=== PATIENT | male | born 1955 | race Caucasian/White ===

== ENCOUNTER 2016-12-22 14:31 | Inpatient (IN) | payer OTHER ==
[~2016-12-22] VITALS: Ht 193 cm; Wt 116.2 kg
[~2016-12-22 14:31] MED LIST: ASPI-799 PO; METO-429 PO
[2016-12-22] MEDS ORDERED: VANCOMYCIN 1 GM (PMX) 250 ML IVPB SCH ×2 (15:00→17:30)
[2016-12-22] MEDS ORDERED: CEFTRIAXONE 1 GM/50 ML (PMX) 50 ML IVPB STA (15:00)
[2016-12-22 16:06] LABS: BASOPHILS % 0.4 % (0.0-2.0); EOSINOPHILS # 0.1 10^3/ul (0.0-0.5); EOSINOPHILS % 0.9 % (0.0-7.0); HEMATOCRIT 39.4 % (42.0-52.0); HEMOGLOBIN 13.7 g/dl (14.0-18.0); LYMPHOCYTES # 1.6 10^3/ul (0.8-2.9); LYMPHOCYTES % 20.8 % (15.0-51.0); MEAN CORPUSCULAR HEMOGLOBIN 30.5 pg (29.0-33.0); MEAN CORPUSCULAR HGB CONC 34.8 g/dl (32.0-37.0); MEAN CORPUSCULAR VOLUME 87.8 fl (82.0-101.0); MONOCYTE # 0.7 10^3/ul (0.3-0.9); MONOCYTES % 8.6 % (0.0-11.0); NEUTROPHIL # 5.4 10^3/ul (1.6-7.5); NEUTROPHILS % 68.9 % (39.0-77.0); PLATELET COUNT 161 10^3/UL (140-415); RED BLOOD COUNT 4.49 10^6/ul (4.70-6.10); RED CELL DISTRIBUTION WIDTH 14.6 % (11.5-14.5); WHITE BLOOD COUNT 7.9 10^3/ul (4.8-10.8)
[2016-12-22 16:23] LABS: INR 1.02; PROTIME 13.4 Sec (12.2-14.2)
[2016-12-22 16:25] LABS: ALBUMIN/GLOBULIN RATIO 1.17; BILIRUBIN,INDIRECT 0.5 mg/dl (0-1.1); BILIRUBIN,TOTAL 0.5 mg/dl (0.2-1.3); CALCIUM 9.4 mg/dl (8.4-10.2); CREATININE 0.77 mg/dl (0.61-1.24); POTASSIUM 4.1 mmol/L (3.5-5.1); TOTAL PROTEIN 7.4 g/dl (6.1-8.1)
--- NOTE | 2016-12-22 16:34 | RADRPT ---
PROCEDURE: US Lower extremity venous, bilateral CLINICAL INDICATION: bilateral lower extremity swelling, DVT TECHNIQUE: Multiple sonographic images of the bilateral lower extremity deep venous system was ob tained utilizing grayscale, color-flow, compressive sonography and doppler imaging with augmentation . The images were reviewed on a PACS workstation. COMPARISON: None. FINDINGS: There is normal compressibility and flow within the bilateral common femoral, superficial femoral , posterior tibial, peroneal and popliteal veins. RPTAT: AA IMPRESSION: No sonographic evidence for deep venous thrombosis in bilateral lower extremities. Physician Christina Date Time Electronically viewed and signed by Physician Christina on 12/22/2016 16:34 /
--- NOTE | 2016-12-22 17:23 | ERD ---
ER Documentation Chief Complaint Chief Complaint direct admission for infection to rMatesu díaz HPI 61-year-old referred here for IV antibiotic therapy. He has a recent history of right second toe ulceration and suspected osteomyelitis. He states he has been using oral Cipro improvement. He describes right left toe discoloration and ulcer formation at the tip. He has chronic bilateral lower extremity peripheral edema and peripheral vascular disease. He denies fevers or chills, no chest pain or shortness of breath, no headache or blurry vision. Patient denies vomiting or diarrhea. He has had recent imaging studies which could not be reviewed here in the emergency department. ROS All systems reviewed and are negative except as per history of present illness. Medications Home Meds Reported Medications Aspirin/Calcium Carbonate/Mag (Aspirin Buffered) 325 Mg Tablet, 325 MG PO DAILY , TAB 04/15/14 Metoprolol Tartrate* (Lopressor*) 50 Mg Tab, 50 MG PO BID, TAB 04/15/14 Allergies Allergies: Coded Allergies: pseudoephedrine (Verified Allergy, Intermediate, HALLUCINATION, 04/15/14) sulfamethoxazole (Verified Adverse Reaction, Severe, RASHES, 04/15/14) trimethoprim (Verified Adverse Reaction, Severe, RASHES, 04/15/14) PMhx/Soc Hypertension, CAD, peripheral vascular disease, stasis dermatitis History of Surgery: Yes (LEFT FOOT SURGERY 2013) Anesthesia Reaction: No Hx Neurological Disorder: No Hx Respiratory Disorders: No Hx Cardiac Disorders: Yes (AFIB) Hx Psychiatric Problems: No Hx Miscellaneous Medical Probl: Yes (PAD, FOOT/TOE ULCER, CELLUTLITIS) Hx Alcohol Use: Yes (2 CUPS WINE DAILY) Hx Substance Use: No Hx Tobacco Use: No Smoking Status: Never smoker FmHx Family History: No diabetes Physical Exam Vitals Vital Signs Date Time Temp Pulse Resp B/P Pulse Ox O2 Delivery O2 Flow Rate FiO2 12/22/16 14:33 98.9 107 20 130/81 96 Physical Exam GENERAL: Well-developed, well-nourished, well-hydrated, in no apparent distress , looks nontoxic in appearance, afebrile HEENT: Moist mucous membranes, pink conjunctiva, no cervical spine tenderness or step-off deformities, no goiter, no jaundice or icterus, extraocular movements intact without pain. No submandibular induration, and no pharyngeal erythema NEURO: Alert and oriented 3, cranial nerves II through XII intact bilaterally, pupils equal round reactive to light, no focal deficits or facial asymmetry, sensation intact distally Strength 5/5 in upper and lower extremities bilaterally CARDIAC: Regular rate and rhythm, no murmurs rubs or gallops LUNGS: Clear bilaterally no wheezing crackles or stridor ABDOMEN: Soft nontender, no guarding, no rigidity, no rebound, no psoas sign no obturator sign. Normoactive bowel sounds SKIN: Warm and dry to touch, diffuse bilateral lower extremity erythema and chronic skin changes, superficial ulceration of the tip of the right second toe with circumferential erythema to that toe. EXTREMITIES: No clubbing cyanosis, 2+ pitting edema to the lower extremities bilaterally, calves are bilaterally symmetrical, no Homans sign, no popliteal cord sign. Distal pulses equal and bilateral PSYCH: Normal affect without agitation or irritability Result Diagram: 12/22/16 1550 12/22/16 1550 Results 24 hrs Laboratory Tests Test 12/22/16 15:50 White Blood Count 7.910^3/ul Red Blood Count 4.4910^6/ul Hemoglobin 13.7g/dl Hematocrit 39.4% Mean Corpuscular Volume 87.8fl Mean Corpuscular Hemoglobin 30.5pg Mean Corpuscular Hemoglobin Concent 34.8g/dl Red Cell Distribution Width 14.6% Platelet Count 57390^3/UL Mean Platelet Volume 11.0fl Neutrophils % 68.9% Lymphocytes % 20.8% Monocytes % 8.6% Eosinophils % 0.9% Basophils % 0.4% Nucleated Red Blood Cells % 0.0/100WBC Neutrophils # 5.410^3/ul Lymphocytes # 1.610^3/ul Monocytes # 0.710^3/ul Eosinophils # 0.110^3/ul Basophils # 0.010^3/ul Nucleated Red Blood Cells # 0.010^3/ul Prothrombin Time 13.4Sec Prothrombin Time Ratio 1.0 INR International Normalized Ratio 1.02 Sodium Level 135mmol/L Potassium Level 4.1mmol/L Chloride Level 100mmol/L Carbon Dioxide Level 28mmol/L Anion Gap 11 Blood Urea Nitrogen 13mg/dl Creatinine 0.77mg/dl Glucose Level 81mg/dl Calcium Level 9.4mg/dl Total Bilirubin 0.5mg/dl Direct Bilirubin 0.00mg/dl Indirect Bilirubin 0.5mg/dl Aspartate Amino Transf (AST/SGOT) 23IU/L Alanine Aminotransferase (ALT/SGPT) 40IU/L Alkaline Phosphatase 131IU/L Total Protein 7.4g/dl Albumin 4.0g/dl Globulin 3.40g/dl Albumin/Globulin Ratio 1.17 Lipase 112U/L Current Medications Medications (Trade) Dose Ordered Sig/Amanda Route PRN Reason Start Time Stop Time Status Last Admin Dose Admin Ceftriaxone Sodium 50 ml @ 100 mls/hr ONCE STAT IVPB 12/22/16 15:00 12/22/16 15:29 DC 12/22/16 15:50 Vancomycin HCl (Vancocin) 250 ml @ 125 mls/hr ONCE IVPB 12/22/16 15:00 12/22/16 16:59 DC 12/22/16 17:07 Procedures/MDM IV line was established patient was placed on commissions manager rhythm strip revealed a sinus rhythm at about 80 bpm with upright P and T waves. Patient was afebrile. Blood cultures were ordered results are pending I will follow-up. Arterial Doppler ultrasound of lower extremities was performed there is evidence of left lower extremity arterial stenosis diffusely but no focal thrombus noted. Please refer to radiologist dictation for full report. Bilateral lower extremity ultrasound was performed, no DVTs noted. I administered ceftriaxone 1 g IV 1 and vancomycin 1 g IV 1. CBC and electrolytes were normal, liver function tests are normal, coagulation profile. X-ray of the right foot has also been ordered results are pending I will follow- up. Patient will be admitted to telemetry setting for continued medical management and IV antibiotics. Departure Diagnosis: Primary Impression: Cellulitis of second toe Laterality: right Qualified Code: L03.031 - Cellulitis of second toe of right foot Additional Impressions: Osteomyelitis of toe Stasis dermatitis of both legs Peripheral vascular disease Condition: VAISHALI Pate MD Dec 22, 2016 17:22
[2016-12-22] MEDS ORDERED: NACL 0.9% 3 ML SYG IV SCH (17:30)
[2016-12-22] MEDS ORDERED: ACETAMINOPHEN 325 MG TAB PO PRN (17:30)
[2016-12-22] MEDS ORDERED: ONDANSETRON 4 MG INJ IV PRN (17:30)
[2016-12-22] MEDS ORDERED: HYDROCODONE/APAP (5/325) TAB PO PRN (17:30)
[2016-12-22] MEDS ORDERED: BISACODYL (EC) 5 MG TAB PO PRN (17:30)
[2016-12-22] MEDS ORDERED: morphine 2 MG INJ IV PRN (17:30)
[2016-12-22] MEDS ORDERED: VANCOMYCIN IV PER PHARMACY XX SCH (17:30)
[2016-12-22] MEDS ORDERED: LORAZEPAM 0.5 MG TAB PO PRN (17:30)
--- NOTE | 2016-12-22 17:41 | HP ---
Date/Time of Note Date/Time of Note DATE: 12/22/16 TIME: 17:33 Assessment/Plan VTE Prophylaxis VTE Prophylaxis Intervention: LMWH Assessment/Plan Chief Complaint/Hosp Course Patient is a 61-year-old male with a past medical history of A. fib who presents for possible osteomyelitis of the second toe. Assessment and plan Sepsis, secondary to possible osteomyelitis on right toe Right toe ulcer Mild anemia Atrial fibrillation, chronic Bilateral venous stasis, chronic History of MRSA cellulitis Scoliosis Colon polyps, history of -Patient sent by director of business services, Dr. Damaris Watson, for admission , for possible osteomyelitis -X-rays seen in the office showed possible gaseous formation and possible osteomyelitis, will repeat x-ray, will get MRI and start patient on broad- spectrum antibiotics for now. -Blood cultures for sepsis and lactic acid pending -EKG, patient has not seen doctors and states that a 325 mg aspirin is all he needs, explained to patient that this is not typical treatment for atrial fibrillation, patient states he understands his medical condition and states that he only wants to take a full aspirin for his atrial fibrillation and accepts all risks associated with full dose aspirin including and debility. -Echocardiogram, pending -Lower extremity ultrasound noted, no DVT -Appears patient has chronic venous stasis in his bilateral lower extremity, will consult cardiology if echocardiogram is abnormal significantly. -We will consult ID -Attempted to call patient's director of business services, patient stated he has [facility] at this hospital, message left with director of business services office, will call again in the a.m. Problems: HPI/ROS Admit Date/Time Admit Date/Time Hx of Present Illness Patient is a 61-year-old male with past medical history significant for atrial fibrillation and chronic bilateral venous stasis and cellulitis along with right toe ulcer who presents to [facility] after being sent by his director of business services for possible osteomyelitis. Patient states that he has been on oral antibiotics and stated that he has felt that the ulcer is getting better, however recent x-rays done at the director of business services's office showed possible osteomyelitis and he was sent to the hospital. Patient has no other acute complaints and states that all he takes his Lasix and a full dose aspirin for his A. fib and he does not follow-up with a regular primary care provider as he did not have insurance before. Patient has no complaints at this time. Patient denies chest pain, nausea, vomiting, bowel or bladder dysfunction. PMH: Atrial fibrillation, scoliosis, lower extremity swelling PSH: Left varicose vein surgery Social: Daily wine Meds: 325 mg aspirin, Lasix 20 mg PMH/Family/Social Social History Smoking Status: Never smoker Exam/Review of Systems Vital Signs Vitals Vital Signs Date Time Temp Pulse Resp B/P Pulse Ox O2 Delivery O2 Flow Rate FiO2 12/22/16 14:33 98.9 107 20 130/81 96 Exam Exam Physical exam General: Patient is laying in bed and answers questions appropriately Mentation: Patient is alert and oriented 4, Head: Normocephalic atraumatic Eyes: EOMI, pupils reactive to light Neck: Supple, nontender, midline Respiratory: Clear to auscultation bilaterally Cardiovascular: regular rate, no obvious murmurs Gastrointestinal: non-tender to palpation, bowel sounds heard. Neurological: Moves all extremities spontaneously Skin: R 2nd toe ulcer, non-purulent Labs Result Diagram: 12/22/16 1550 12/22/16 1550 VAISHALI CHAU Dec 22, 2016 17:41
--- NOTE | 2016-12-22 17:45 | RADRPT ---
PROCEDURE: US bilateral lower extremity arteries. CLINICAL INDICATION: Bilateral leg pain. Claudication that interferes significantly with the sina ent's lifestyle. TECHNIQUE: Multiple longitudinal and transverse images of the bilateral lower extremity arteries w ere obtained with lugo scale, pulsed Doppler, and color Doppler imaging. COMPARISON: No prior studies are available for comparison. FINDINGS: Right ANATOMY AND PHYSIOLOGY INSTRUCTOR:73 cm/sec PSFA:83 cm/sec MSFA:71 cm/sec DSFA:64 cm/sec POP:101 cm/sec LAWYERS:72 cm/sec DPA:73 cm/sec Left ANATOMY AND PHYSIOLOGY INSTRUCTOR:123 cm/sec PSFA:118 cm/sec MSFA:94 cm/sec DSFA:112 cm/sec POP:80 cm/sec LAWYERS:34 cm/sec DPA:61 cm/sec On the right side, there is normal triphasic flow throughout. There is no stenosis or occlusion. On the left side, there is normal triphasic flow in the femoral and popliteal systems. Monophasic fl ow is present in the calf arteries. IMPRESSION: 1. Abnormal flow in the left calf arteries which may indicate significant stenosis. 2. Otherwise unremarkable study. RPTAT: QQ .Shar Mendosa MD, MD Date Time Electronically viewed and signed by .Shar Mendosa MD, on 12/22/2016 17:45 .R/
--- NOTE | 2016-12-22 17:53 | RADRPT ---
PROCEDURE: XR Right Foot. CLINICAL INDICATION: Trauma. Right foot pain. TECHNIQUE: 3 views. Frontal, lateral, and oblique. COMPARISON: None. FINDINGS: There is an old healed fracture of the distal shaft of the second metatarsal. There is no acute frac ture. There is no dislocation. There is diffuse soft tissue swelling overlying the metatarsals. Articular surfaces are intact. There is no lytic or blastic lesion. There is no radiopaque foreign body. IMPRESSION: 1. Old healed fracture of the distal shaft of the second metatarsal. 2. No acute bone or joint abnormality. 3. Diffuse soft tissue swelling overlying the metatarsals. 4. Otherwise unremarkable study. RPTAT: QQ .Shar Mendosa MD, MD Date Time Electronically viewed and signed by .Shar Mendosa MD, on 12/22/2016 17:53 .R/
[2016-12-22 18:32] VITALS: PULSE 70
[2016-12-22 20:00] VITALS: BP 120/80; RESP 18
[2016-12-22 20:13] VITALS: PULSE 50
[2016-12-22] MEDS ORDERED: VANCOMYCIN 1 GM in NS 250 ML IVPB SCH (20:30)
[2016-12-22 20:45] VITALS: Ht 193 cm; Wt 116.2 kg
[2016-12-22] MEDS: SOD CHLORIDE 0.45% 1,000 ML IV SCH (22:46)
[2016-12-23] VITALS (11 sets, daily range): BP systolic 108–130; BP diastolic 58–82; PULSE 53–69; RESP 16–20
[2016-12-23] MEDS: PIPER-TAZO 3.375 GM IV (PMX) 50 ML IVPB SCH ×2 (02:22→07:02)
[2016-12-23] MEDS ORDERED: VANCOMYCIN 1.75 GM in NS 500 ML IVPB SCH (05:00)
[2016-12-23] MEDS: PANTOPRAZOLE (EC) 40 MG TAB PO SCH (06:00)
[2016-12-23 08:54] LABS: BASOPHILS % 0.6 % (0.0-2.0); EOSINOPHILS # 0.1 10^3/ul (0.0-0.5); EOSINOPHILS % 1.5 % (0.0-7.0); HEMOGLOBIN 14.1 g/dl (14.0-18.0); LYMPHOCYTES # 1.3 10^3/ul (0.8-2.9); LYMPHOCYTES % 20.9 % (15.0-51.0); MEAN CORPUSCULAR HEMOGLOBIN 30.2 pg (29.0-33.0); MEAN CORPUSCULAR HGB CONC 33.6 g/dl (32.0-37.0); MEAN CORPUSCULAR VOLUME 89.9 fl (82.0-101.0); MEAN PLATELET VOLUME 11.9 fl (7.4-10.4); MONOCYTE # 0.6 10^3/ul (0.3-0.9); MONOCYTES % 9.4 % (0.0-11.0); NEUTROPHIL # 4.2 10^3/ul (1.6-7.5); NEUTROPHILS % 67.4 % (39.0-77.0); PLATELET COUNT 149 10^3/UL (140-415); RED BLOOD COUNT 4.67 10^6/ul (4.70-6.10); RED CELL DISTRIBUTION WIDTH 14.9 % (11.5-14.5); WHITE BLOOD COUNT 6.2 10^3/ul (4.8-10.8)
[2016-12-23 09:00] LABS: ALBUMIN 3.7 g/dl (3.3-4.9); ALBUMIN/GLOBULIN RATIO 1.08; BILIRUBIN,INDIRECT 0.7 mg/dl (0-1.1); BILIRUBIN,TOTAL 0.7 mg/dl (0.2-1.3); CALCIUM 9.3 mg/dl (8.4-10.2); CHOL/HDL RATIO 3.2 RATIO; CREATININE 0.8 mg/dl (0.61-1.24); POTASSIUM 4.4 mmol/L (3.5-5.1); TOTAL PROTEIN 7.1 g/dl (6.1-8.1)
[2016-12-23] MEDS: ASPIRIN (EC) 325 MG TAB PO SCH (09:33)
[2016-12-23] MEDS: FUROSEMIDE 20 MG TAB PO SCH (09:34)
[2016-12-23] MEDS: SOD CHLORIDE 0.45% 1,000 ML IV SCH ×2 (09:35→16:30)
[2016-12-23] MEDS: ENOXAPARIN 40 MG/0.4 ML SYG SC SCH (10:15)
--- NOTE | 2016-12-23 11:51 | RADRPT ---
PROCEDURE: MRI OF THE RIGHT FOOT. CLINICAL INDICATION: Clinical concern is for osteomyelitis at the second toe. Right foot. TECHNIQUE: Multiple MR pulse sequences in multiple planes were obtained. Images were interpreted on the high-resolution PACS system. COMPARISON: DR CARABALLO 12/22/2016 FINDINGS: There is abnormal cortical destruction, T1 bone marrow signal infiltration and abnormal bone marrow edema seen at the second distal phalanx and also at the first distal phalanx. Likely superimposed fr acture of the first distal phalanx. Faint bone marrow edema seen at the third distal phalanx without abnormal T1 bone marrow signal likely reactive at this time or from mild ischemia. Bone marrow sign al elsewhere in the forefoot is normal without additional foci of osteomyelitis. There are mild dege nerative changes at the first MTP joint. There is fatty atrophy throughout the plantar musculature related to chronic denervation effect. No tendon rupture or abnormal tenosynovitis is currently seen. No drainable fluid collection is identif ied. IMPRESSION: 1. Evidence of osteomyelitis at the first and second distal phalanges. 2. Faint bone marrow edema at the third distal phalanx, likely reactive at this time. 3. No evidence for a drainable fluid collection. RPTAT: PP .Rajesh Reyes MD, Date Time Electronically viewed and signed by .Rajesh Reyes MD, on 12/23/2016 11:51 .d/
--- NOTE | 2016-12-23 12:03 | PN ---
Date/Time of Note Date/Time of Note DATE: 12/23/16 TIME: 12:01 Assessment/Plan VTE Prophylaxis VTE Prophylaxis Intervention: ambulation Lines/Catheters IV Catheter Type (from Nrs): Mid Line Assessment/Plan Chief Complaint/Hosp Course Patient is a 61-year-old male with a past medical history of A. fib who presents for possible osteomyelitis of the second toe. Assessment and plan Sepsis, secondary to osteomyelitis Right toe ulcer Mild anemia Atrial fibrillation, chronic Bilateral venous stasis, chronic History of MRSA cellulitis Scoliosis Colon polyps, history of -Patient sent by cdl truck driver, Dr. Damaris Watson, for admission , for possible osteomyelitis -MRI today shows osteomyelitis of R 1st and 2nd toe -ID consulted -Dr. Addy Riddle consulted per Dr. Watson's recommendation for vascular for left leg stenosis -Dr. Pravin Fonseca consulted for podiatry. Spoke with Dr. Watson and he is out of town until mon and recommends Dr. Fonseca see patient. -patient refuses any sort of toe amputation -asa 325 for afib per patient request -echo pending -broad spectrum abx Problems: Subjective 24 Hr Interval Summary Free Text/Dictation patient seen walking around unit, no acute issues Exam/Review of Systems Vital Signs Vitals Vital Signs Date Time Temp Pulse Resp B/P Pulse Ox O2 Delivery O2 Flow Rate FiO2 12/23/16 08:00 53 12/23/16 07:55 98.3 18 108/73 98 12/22/16 17:46 Room Air Intake and Output 12/22/16 12/22/16 12/23/16 15:00 23:00 07:00 Intake Total 1300 ml Output Total 1700 ml Balance -400 ml Exam Physical exam General: Patient is laying in bed and answers questions appropriately Mentation: Patient is alert and oriented 4, Head: Normocephalic atraumatic Eyes: EOMI, pupils reactive to light Neck: Supple, nontender, midline Respiratory: Clear to auscultation bilaterally Cardiovascular: regular rate, no obvious murmurs Gastrointestinal: non-tender to palpation, bowel sounds heard. Neurological: Moves all extremities spontaneously Skin: R 2nd toe ulcer, non-purulent Results Result Diagram: 12/23/16 0816 12/23/16 0816 Results 24 hrs Laboratory Tests Test 12/22/16 15:50 12/23/16 08:16 White Blood Count 7.9 6.2 # Red Blood Count 4.49 L 4.67 L Hemoglobin 13.7 L 14.1 Hematocrit 39.4 L 42.0 Mean Corpuscular Volume 87.8 89.9 Mean Corpuscular Hemoglobin 30.5 30.2 Mean Corpuscular Hemoglobin Concent 34.8 33.6 Red Cell Distribution Width 14.6 H 14.9 H Platelet Count 161 149 Mean Platelet Volume 11.0 H 11.9 H Neutrophils % 68.9 67.4 Lymphocytes % 20.8 20.9 Monocytes % 8.6 9.4 Eosinophils % 0.9 1.5 Basophils % 0.4 0.6 Nucleated Red Blood Cells % 0.0 0.0 Neutrophils # 5.4 4.2 Lymphocytes # 1.6 1.3 Monocytes # 0.7 0.6 Eosinophils # 0.1 0.1 Basophils # 0.0 0.0 Nucleated Red Blood Cells # 0.0 0.0 Prothrombin Time 13.4 Prothrombin Time Ratio 1.0 INR International Normalized Ratio 1.02 Sodium Level 135 139 Potassium Level 4.1 4.4 Chloride Level 100 105 Carbon Dioxide Level 28 27 Anion Gap 11 11 Blood Urea Nitrogen 13 12 Creatinine 0.77 0.80 Glucose Level 81 86 Calcium Level 9.4 9.3 Total Bilirubin 0.5 0.7 Direct Bilirubin 0.00 0.00 Indirect Bilirubin 0.5 0.7 Aspartate Amino Transf (AST/SGOT) 23 28 Alanine Aminotransferase (ALT/SGPT) 40 37 Alkaline Phosphatase 131 H 119 Total Protein 7.4 7.1 Albumin 4.0 3.7 Globulin 3.40 H 3.40 H Albumin/Globulin Ratio 1.17 1.08 Lipase 112 Triglycerides Level 74 Cholesterol Level 133 LDL Cholesterol, Calculated 77 HDL Cholesterol 41 Cholesterol/HDL Ratio 3.2 Medications Medications Current Medications Sodium Chloride (1/2 NS) 1,000 ml @ 100 mls/hr Q10H IV Last administered on t 22:46; Admin Dose 100 MLS/HR; Start 12/22/16 at 20:00 Lorazepam (Ativan) 0.5 mg Q8H PRN PO ANXIETY; Start 12/22/16 at 17:30 Ondansetron HCl (Zofran Inj) 4 mg Q6H PRN IV NAUSEA AND/OR VOMITING; Start 12/22/16 at 17:30 Aspirin (Ecotrin) 325 mg DAILY PO Last administered on 12/23/16 09:33; Admin Dose 325 MG; Start 12/23/16 at 09:00 Acetaminophen (Tylenol Tab) 650 mg Q6H PRN PO PAIN LEVEL 1-3 OR FEVER; Start 12/22/16 at 17:30 Acetaminophen/ Hydrocodone Bitart ([place] (5/325)) 1 tab Q6H PRN PO PAIN LEVEL 4 -6; Start 12/22/16 at 17:30 Morphine Sulfate (morphine) 2 mg Q4H PRN IV PAIN LEVEL 7-10; Start 12/22/16 at 17:30 Bisacodyl (Dulcolax) 5 mg DAILY PRN PO CONSTIPATION; Start 12/22/16 at 17:30 Pantoprazole (Protonix Tab) 40 mg DAILY@06 PO ; Start 12/23/16 at 06:00 Enoxaparin Sodium 40 mg 40 mg DAILY SC Last administered on 12/23/16 10:15; Admin Dose 40 MG; Start 12/23/16 at 09:00 Piperacillin Sod/ Tazobactam Sod (Zosyn 3.375gm/ 50 ml (Pmx)) 50 ml @ 100 mls/ hr Q6 IVPB Last administered on 12/23/16 07:02; Admin Dose 100 MLS/HR; Start 12/23/16 at 00:00 Furosemide 20 mg 20 mg DAILY PO Last administered on 12/23/16 09:34; Admin Dose 20 MG; Start 12/23/16 at 09:00 Vancomycin HCl/ Sodium Chloride (Vancocin/NS) 500 ml @ 125 mls/hr Q12H IVPB ; Start 12/23/16 at 22:00 Miscellaneous Information (*Rx Drug Level Order Reminder*) VANCO TROUGH @ 0, 900 ON ... ONCE ONCE XX ; Start 12/24/16 at 09:00; Stop 12/24/16 at 09:01 VAISHALI CHAU Dec 23, 2016 12:03
--- NOTE | 2016-12-23 13:06 | RADRPT ---
Echocardiogram Report Patient Name: BENI RANGEL Gender: Male Date: 1955 Study Date: 23-Dec-2016 Historian Dramatic Arts: Ad [facility] Location: 5550 Ref. Physician: VAISHALI CHAU Quality: Technically Difficult Study Procedures: Transthoracic echocardiogram with complete 2D, M-Mode, and doppler examination. Indications: Congestive Heart Failure. 2D/M Mode Doppler Measurement Value Normal Ranges Measurement Value Normal Ranges LVIDd 2D 4.4 3.5 - 5.6 cm AV Peak Ole 1.5 m/sec LVIDs 2D 2.9 2.1 - 4.1 cm AV Peak PG 9.0 mmHg FS 2D 33.3 % LVOT Peak Ole 0.9 m/sec LVPWd 2D 1.0 0.6 - 1.1 cm LVOT Peak PG 4.0 mmHg IVSd 2D 1.0 0.6 - 1.1 cm MV E Peak Ole 1.4 m/sec IVS/LVPW 2D 1.0 MV Decel Time 190 msec AoR Diam 2D 3.2 2.0 - 3.7 cm TR Peak Ole 2.9 m/sec LA/Ao 2D 1 0 - 1 TR Peak PG 34.0 mmHg EDV 2D 84.6 cm3 RVSP 42.0 mmHg ESV 2D 25.2 cm3 LA Dimen 2D 4.6 2.3 - 4.0 cm Findings Left Ventricle: Normal left ventricular systolic function. Normal left ventricular cavity size. Normal left ventricular wall thickness. Ejection fraction is visually estimated at 55 %. Abnormal Diastolic Function. Right Ventricle: Normal right ventricular systolic function. Mild enlargement of right ventricle. Left Atrium: There is mild enlargement of left atrium. Right Atrium: There is moderate enlargement of right atrium. Mitral Valve: Mild mitral leaflet calcification. Mild mitral annular calcification. Trace mitral regurgitation. Aortic Valve: No significant aortic stenosis or insufficiency. Aortic cusps appear mildly calcified. Tricuspid Valve: Normal appearance of the tricuspid valve. Estimated peak PA systolic pressure 42 mmHg. There is mild to moderate tricuspid regurgitation. Pulmonic Valve: Pulmonic valve not well visualized. There is trace pulmonic regurgitation. Pericardium: Normal pericardium with no significant pericardial effusion. Aorta: Normal aortic root. IVC: Dilated inferior vena cava with poor inspiratory collapse consistent with elevated right atrial pressures. Conclusions 1.Normal left ventricular systolic function. Normal left ventricular cavity size. Normal left ventricular wall thickness. Ejection fraction is visually estimated at 55 %. Abnormal Diastolic Function. 2.Normal right ventricular systolic function. Mild enlargement of right ventricle. 3.There is mild enlargement of left atrium. 4.There is moderate enlargement of right atrium. 5.Estimated peak PA systolic pressure 42 mmHg. There is mild to moderate tricuspid regurgitation. 6.No significant aortic stenosis or insufficiency. 7.Trace mitral regurgitation. 8.Normal pericardium with no significant pericardial effusion. Electronically Signed By: Felice Purvis 23-Dec-2016 13:05:36 -0800 Patient Name: BENI RANGEL Study Date: 23-Dec-2016 [id number]
--- NOTE | 2016-12-23 14:10 | CONS ---
DATE OF ADMISSION: 12/22/2016 DATE OF CONSULTATION: 12/23/2016 INFECTIOUS DISEASE CONSULTATION REASON FOR CONSULTATION: Antibiotic management. HISTORY OF PRESENT ILLNESS: Zachary Constantino is a 61-year-old male who was admitted on 12/22/2016 mariam galdamez seen on 12/23/2016 for antibiotic management. His past problems include: 1. History of atrial fibrillation. 2. Chronic bilateral venous stasis and cellulitis. 3. Right toe ulcer. The patient presents to [facility] after being seen by his facilities maintenance technician for possible osteomyelitis. He has been on oral antibiotics and is felt the ulcer is getting sonja r; however, recent x-rays show possible osteomyelitis and he was sent to the hospital. The patient takes Lasix and full dose of aspirin for his atrial fibrillation. He has no complaints at this time . Denies chest pain, nausea, vomiting, bowel or bladder dysfunction. PAST MEDICAL HISTORY: Operations include left varicose vein surgery. PAST MEDICAL PROBLEMS: Atrial fibrillation, scoliosis, lower extremity swelling. No clear history of diabetes. He has bilateral venous stasis, chronic, history of MRSA cellulitis, colonic polyps. SOCIAL HISTORY: Does not smoke, drink or abuse drugs. ALLERGIES: NONE TO PENICILLIN, SULFA OR FOODS. MEDICATIONS: Per chart. REVIEW OF SYSTEMS: As per HPI. PHYSICAL EXAMINATION: GENERAL: The patient is a well-developed, well-nourished male who is alert, responsive, in no acute distress. VITAL SIGNS: Stable. He is afebrile. SKIN: Without generalized rash. HEENT: Within normal limits. NECK: Supple. LYMPH NODES: None palpable. CHEST: Decreased breath sounds at the bases. HEART: Without murmur or gallop. ABDOMEN: Soft, nontender, without organosplenomegaly or masses. EXTREMITIES: Without cyanosis, clubbing, or edema. He has a right second toe ulcer which is nonpur ulent. ANCILLARY LABORATORY DATA: White count 7.9, H and H of 13.7 and 39.4, platelet count 161,000. BUN and creatinine 13/0.77. Random glucose of 81. A foot x-ray showed old healed fracture of the dista l shaft of the second metatarsal on the right. No acute bone or joint abnormalities, diffuse soft t issue swelling overlying the metatarsals, otherwise unremarkable study. Arterial study shows normal flow in the left arteries which may indicate stenosis and his DVT study was negative. IMPRESSION AND PLAN: The patient was begun on vancomycin and Zosyn for the possibility of osteomyel itis. An MRI of the right foot was ordered. We will await the results of the MRI. A blood culture was ordered. I will dictate my findings to the hospitalist. Dictated By: EDWIN CRAIG MD, JD/KOLE Conf#: [id number] DID#: [id number]
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
[2016-12-23] MEDS: PIPER-TAZO 3.375 GM IV (PMX) 100 ML IVPB SCH (17:52)
--- NOTE | 2016-12-23 20:17 | CONS ---
DATE OF ADMISSION: 12/22/2016 DATE OF CONSULTATION: 12/23/2016 REASON FOR CONSULTATION: Right foot second toe infection. REFERRING PHYSICIAN: Dr. Watson. HISTORY OF PRESENT ILLNESS: A 61-year-old male who was admitted for cellulitis and possible osteomy elitis of the right second toe. He had been treated with a 7-week course of Cipro and had been havi ng wounds off and on and has had prior treatment at [facility]. The patient has had imaging and vas cular studies obtained. MRI reveals evidence of osteomyelitis of the 1st and 2nd phalanges. Radiog raphs reveal old healed fracture of the distal shaft of the second metatarsals. The patient relates subsiding pain and swelling to the right second toe. PAST MEDICAL HISTORY: Atrial fibrillation, scoliosis, venous stasis, edema, hallux varus deformity, left foot, and claw toe deformities. PAST SURGICAL HISTORY: Varicose vein surgery, left. SOCIAL HISTORY: Daily wine. MEDICATIONS: 1. Aspirin 325 mg daily. 2. Lasix 20 mg daily. 3. Patient on vancomycin and Zosyn. ALLERGIES: NONE. PHYSICAL EXAMINATION GENERAL: Patient alert and oriented, in no acute distress. Regular respiration. HEENT: Head is normocephalic. EXTREMITIES: The patient with venous stasis bilateral with hyperpigmentation of skin. Lipodermatos clerotic changes. There are left foot hallux varus deformity clawtoes. There is right foot ulcerat ion of the second toe. No active drainage. There is mild erythema, mild tenderness with palpation. No ascending cellulitis. The patient with 3+ DP, PT pulses. There is a callous at the distal asp ect of the right second toe. LABORATORIES: WBC 6.2, hemoglobin 14.1, hematocrit 42, platelets 149. Sodium 139, potassium 4.4, c hloride 105, BUN 12, creatinine 0.8, glucose is 86. Arterial exam: Abnormal flow in the left calf arteries may indicate significant stenosis. On the r ight side, normal triphasic flow. ASSESSMENT: 1. Right foot second toe cellulitis. 2. Right foot hammertoe deformities. 3. Osteomyelitis per imaging and clinically of the toe with mild cellulitis. The patient refusing a mputation. Sed rate and CRP levels are pending. 4. Venous stasis. 5. Edema. PLAN: The patient seen and evaluated. Reviewed imaging studies. Obtained sed rate, CRP to correla te clinically. The toe appears to be improving since admission. The patient refusing amputation. If lab studies correlate with osteomyelitis infection, may require medical treatment of the bone inf ection. Discussed amputation. The patient refusing. Nursing recommendations are given for daily c leansing and topical antimicrobial ointment. Dictated By: KAREN SILVA DPM RB/KOLE Conf#: [id number] DID#: [id number] CC: YANICK WATSON DPM;*EndCC*
[2016-12-23] MEDS: VANCOMYCIN 1.75 GM in NS 500 ML IVPB SCH (21:09)
[2016-12-23] MEDS: SODIUM HYPOCHLORITE 1/40% 1L IRRIG IRR SCH (21:09)
[2016-12-23] MEDS: MUPIROCIN 2% 22 GM OINT TOP SCH (21:10)
[2016-12-24] VITALS (13 sets, daily range): BP systolic 105–138; BP diastolic 72–93; PULSE 54–72; RESP 18–19
[2016-12-24] MEDS: PIPER-TAZO 3.375 GM IV (PMX) 100 ML IVPB SCH ×3 (00:14→14:21)
[2016-12-24] MEDS: PANTOPRAZOLE (EC) 40 MG TAB PO SCH (06:00)
[2016-12-24] MEDS: FUROSEMIDE 20 MG TAB PO SCH (09:00)
[2016-12-24] MEDS: SOD CHLORIDE 0.45% 1,000 ML IV SCH ×3 (09:00→22:00)
[2016-12-24] MEDS: ASPIRIN (EC) 325 MG TAB PO SCH (09:00)
[2016-12-24] MEDS: MUPIROCIN 2% 22 GM OINT TOP SCH ×2 (09:01→21:26)
[2016-12-24] MEDS: SODIUM HYPOCHLORITE 1/40% 1L IRRIG IRR SCH ×2 (09:01→21:26)
[2016-12-24] MEDS: ENOXAPARIN 40 MG/0.4 ML SYG SC SCH (09:03)
[2016-12-24 10:03] LABS: BASOPHILS % 0.7 % (0.0-2.0); EOSINOPHILS # 0.1 10^3/ul (0.0-0.5); EOSINOPHILS % 1.5 % (0.0-7.0); HEMATOCRIT 41.3 % (42.0-52.0); HEMOGLOBIN 14.1 g/dl (14.0-18.0); LYMPHOCYTES # 1.3 10^3/ul (0.8-2.9); LYMPHOCYTES % 24.4 % (15.0-51.0); MEAN CORPUSCULAR HGB CONC 34.1 g/dl (32.0-37.0); MEAN CORPUSCULAR VOLUME 87.9 fl (82.0-101.0); MEAN PLATELET VOLUME 11.4 fl (7.4-10.4); MONOCYTE # 0.5 10^3/ul (0.3-0.9); MONOCYTES % 8.4 % (0.0-11.0); NEUTROPHIL # 3.5 10^3/ul (1.6-7.5); NEUTROPHILS % 64.8 % (39.0-77.0); PLATELET COUNT 150 10^3/UL (140-415); RED CELL DISTRIBUTION WIDTH 14.5 % (11.5-14.5); WHITE BLOOD COUNT 5.4 10^3/ul (4.8-10.8)
[2016-12-24 10:38] LABS: CALCIUM 9.4 mg/dl (8.4-10.2); CREATININE 0.84 mg/dl (0.61-1.24); MAGNESIUM 1.7 mg/dl (1.7-2.5); PHOSPHORUS 3.5 mg/dl (2.5-4.9); POTASSIUM 3.9 mmol/L (3.5-5.1)
[2016-12-24] MEDS: VANCOMYCIN 1.75 GM in NS 500 ML IVPB SCH (11:04)
--- NOTE | 2016-12-24 11:44 | PN ---
Date/Time of Note Date/Time of Note DATE: 12/24/16 TIME: 11:44 Assessment/Plan VTE Prophylaxis VTE Prophylaxis Intervention: SCD's Lines/Catheters IV Catheter Type (from Nrsg): Mid Line Assessment/Plan Assessment/Plan 1. Sepsis, secondary to osteomyelitis from right toe ulcer - improving and patient remains afebrile with normal WBC - Vascular Surgery consultation appreciated and patient will need to follow up as outpatient since no acute issues at this time. - Podiatry on board and recommendations appreciated. Continue daily cleansing and topical antimicrobial ointment. - ESR 15 - ID on board and recommendation appreciated. Continue broad spectrum antibiotics - Blood cultures negative. Wound gram stain negative to date - MRI shows OM 1st and 2nd distal phalanges - patient still adamant about not undergoing amputation 2. Atrial fibrillation, chronic - on aspirin - Currently rate controlled 3. Bilateral venous stasis, chronic - Stable 4. History of MRSA cellulitis 5. Scoliosis 6. Disposition - Awaiting recommendations from podiatry and ID - Patient states he lives in the [facility] and will not be able to get IV antibiotics via HH delivered to him if necessary Subjective 24 Hr Interval Summary Free Text/Dictation Patient is concerned about his electrolytes since gets lower extremity cramping with Mg levels are low. Denies any pain, numbness, or discomfort in right foot. Still adamant about not undergoing amputation. Exam/Review of Systems Vital Signs Vitals Vital Signs Date Time Temp Pulse Resp B/P Pulse Ox O2 Delivery O2 Flow Rate FiO2 12/24/16 11:42 98.1 57 19 105/72 100 12/22/16 17:46 Room Air Intake and Output 12/23/16 12/23/16 12/24/16 15:00 23:00 07:00 Intake Total 2100 ml 1300 ml Balance 2100 ml 1300 ml Exam General: Patient in no acute distress. is laying in bed and answers questions appropriately Mentation: Patient is alert and oriented 4, Head: Normocephalic atraumatic Eyes: EOMI, pupils reactive to light Neck: Supple, nontender, midline Respiratory: Clear to auscultation bilaterally Cardiovascular: regular rate, no obvious murmurs Gastrointestinal: non-tender to palpation, bowel sounds heard. Neurological: Moves all extremities spontaneously Skin: R 2nd toe ulcer, non-purulent serous drainage Results Result Diagram: 12/24/1692312/24/16923 Results 24 hrs Laboratory Tests Test 12/23/16 18:51 12/24/16 09:24 Erythrocyte Sedimentation Rate 15 White Blood Count 5.4 Red Blood Count 4.70 Hemoglobin 14.1 Hematocrit 41.3 L Mean Corpuscular Volume 87.9 Mean Corpuscular Hemoglobin 30.0 Mean Corpuscular Hemoglobin Concent 34.1 Red Cell Distribution Width 14.5 Platelet Count 150 Mean Platelet Volume 11.4 H Neutrophils % 64.8 Lymphocytes % 24.4 Monocytes % 8.4 Eosinophils % 1.5 Basophils % 0.7 Nucleated Red Blood Cells % 0.0 Neutrophils # 3.5 Lymphocytes # 1.3 Monocytes # 0.5 Eosinophils # 0.1 Basophils # 0.0 Nucleated Red Blood Cells # 0.0 Sodium Level 140 Potassium Level 3.9 Chloride Level 105 Carbon Dioxide Level 27 Anion Gap 12 Blood Urea Nitrogen 10 Creatinine 0.84 Glucose Level 87 Calcium Level 9.4 Phosphorus Level 3.5 Magnesium Level 1.7 Vancomycin Level Trough 12.6 Medications Medications Current Medications Sodium Chloride (1/2 NS) 1,000 ml @ 100 mls/hr Q10H IV Last administered on 09:00; Admin Dose 100 MLS/HR; Start 12/22/16 at 20:00 Lorazepam (Ativan) 0.5 mg Q8H PRN PO ANXIETY; Start 12/22/16 at 17:30 Ondansetron HCl (Zofran Inj) 4 mg Q6H PRN IV NAUSEA AND/OR VOMITING; Start 12/22/16 at 17:30 Aspirin (Ecotrin) 325 mg DAILY PO Last administered on 12/24/16 09:00; Admin Dose 325 MG; Start 12/23/16 at 09:00 Acetaminophen (Tylenol Tab) 650 mg Q6H PRN PO PAIN LEVEL 1-3 OR FEVER; Start 12/22/16 at 17:30 Acetaminophen/ Hydrocodone Bitart (Kinde (5/325)) 1 tab Q6H PRN PO PAIN LEVEL 4 -6; Start 12/22/16 at 17:30 Morphine Sulfate (morphine) 2 mg Q4H PRN IV PAIN LEVEL 7-10; Start 12/22/16 at 17:30 Bisacodyl (Dulcolax) 5 mg DAILY PRN PO CONSTIPATION; Start 12/22/16 at 17:30 Pantoprazole (Protonix Tab) 40 mg DAILY@06 PO ; Start 12/23/16 at 06:00 Enoxaparin Sodium (Lovenox) 40 mg DAILY SC Last administered on 12/24/16 09: 03; Admin Dose 40 MG; Start 12/23/16 at 09:00 Furosemide 20 mg 20 mg DAILY PO Last administered on 12/24/16 09:00; Admin Dose 20 MG; Start 12/23/16 at 09:00 Vancomycin HCl 1.75 gm/Sodium Chloride 500 ml @ 125 mls/hr Q12H IVPB Last administered on 12/24/16 11:04; Admin Dose 125 MLS/HR; Start 12/23/16 at 22: 00 Piperacillin Sod/ Tazobactam Sod (Zosyn 3.375gm/ 100 ml (Pmx)) 100 ml @ 200 mls /hr Q6 IVPB Last administered on 12/24/16 06:10; Admin Dose 200 MLS/HR; Start 12/23/16 at 18:00 Mupirocin (Bactroban) 1 applic BID TOP Last administered on 12/24/16 09:01; Admin Dose 1 APPLIC; Start 12/23/16 at 21:00 Sodium Hypochlorite (Dakin'S (Dilute 1/40%)) 1 applic BID IRR Last administered on 12/24/16 09:01; Admin Dose 1 APPLIC; Start 12/23/16 at 21:00 TYLER MENDIOLA MD Dec 24, 2016 11:44
--- NOTE | 2016-12-24 14:55 | RADRPT ---
Vent Rate: 58 bpm RR Interval: 0 msec AK Interval: 0 msec QRS Duration: 96 msec QT Interval: 418 msec QTC Interval: 410 msec P-R-T [place]: 0 - 71 - 69 degrees Atrial fibrillation with slow ventricular response Abnormal ECG No previous tracing available for comparison Electronically Signed By: Andrés Ferrell [id number]
[2016-12-24] MEDS: PIPER-TAZO 3.375 GM IV (PMX) 50 ML IVPB SCH ×2 (18:11→23:15)
--- NOTE | 2016-12-24 18:39 | PN ---
DATE: 12/24/2016 INFECTIOUS DISEASE PROGRESS NOTE SUBJECTIVE: The patient is awake, in no distress, looks comfortable, no fevers. LABORATORY: WBC is 5.4, no shift, no bands. BUN 10, creatinine 0.84. MICROBIOLOGY: Blood cultures remain negative. Wound culture pending. DIAGNOSTICS: MRI of right foot revealed osteomyelitis at the first and second distal phalanges. ANTIMICROBIALS: The patient is on IV vancomycin and Zosyn. PHYSICAL EXAMINATION: GENERAL: Well-developed elderly man who is alert, in no distress. HEENT: Head atraumatic, normocephalic. Sclerae anicteric. Buccal mucosa pink. NECK: Supple. CHEST: Rise symmetrical. Breath sounds clear. HEART: S1, S2. ABDOMEN: Soft, bowel tones present. EXTREMITIES: With right second toe and great toe swelling and erythema. ASSESSMENT: 1. Right great and second toe osteomyelitis. 2. Right foot second toe cellulitis with an evidence of osteomyelitis. 3. History of atrial fibrillation. PLAN: The patient remains stable. Podiatry on case. As per report, patient refused amputation. We will continue him on antibiotics. Will require 6 weeks of IV antibiotics if toe is not amputated==> IV Vanco and PO Levaquin. Dictated By: AURA [employer] F[employer]OR BROKER for EDWIN CRAIG MD NI/NTS Conf#: [id number] DID#: [id number] CC: VAISHALI CHAU MD;*EndCC* MTDD
[2016-12-24] MEDS: LACTOBACILLUS RHAMNOSUS CAP PO SCH (21:25)
[2016-12-24] MEDS: VANCOMYCIN 1.25 GM in SOD CHLORIDE 0.9% 250 ML IVPB SCH (21:25)
[2016-12-24] MEDS ORDERED: MAGNESIUM SULFATE 2 GM/50 ML 50 ML IVPB ONE (22:00)
[2016-12-25] VITALS (13 sets, daily range): BP systolic 117–138; BP diastolic 63–87; PULSE 40–202; RESP 18
[2016-12-25] MEDS: VANCOMYCIN 1.25 GM in SOD CHLORIDE 0.9% 250 ML IVPB SCH ×2 (05:10→13:26)
[2016-12-25] MEDS: PIPER-TAZO 3.375 GM IV (PMX) 50 ML IVPB SCH ×2 (05:13→12:10)
[2016-12-25] MEDS: PANTOPRAZOLE (EC) 40 MG TAB PO SCH (05:14)
[2016-12-25 08:45] LABS: BASOPHIL # 0.1 10^3/ul (0.0-0.1); BASOPHILS % 0.8 % (0.0-2.0); EOSINOPHILS # 0.2 10^3/ul (0.0-0.5); HEMATOCRIT 43.2 % (42.0-52.0); HEMOGLOBIN 14.5 g/dl (14.0-18.0); LYMPHOCYTES # 1.8 10^3/ul (0.8-2.9); LYMPHOCYTES % 23.2 % (15.0-51.0); MEAN CORPUSCULAR HEMOGLOBIN 29.1 pg (29.0-33.0); MEAN CORPUSCULAR HGB CONC 33.6 g/dl (32.0-37.0); MEAN CORPUSCULAR VOLUME 86.6 fl (82.0-101.0); MEAN PLATELET VOLUME 11.9 fl (7.4-10.4); MONOCYTE # 0.6 10^3/ul (0.3-0.9); MONOCYTES % 7.2 % (0.0-11.0); NEUTROPHIL # 5.1 10^3/ul (1.6-7.5); NEUTROPHILS % 66.5 % (39.0-77.0); PLATELET COUNT 170 10^3/UL (140-415); RED BLOOD COUNT 4.99 10^6/ul (4.70-6.10); RED CELL DISTRIBUTION WIDTH 14.7 % (11.5-14.5); WHITE BLOOD COUNT 7.6 10^3/ul (4.8-10.8)
[2016-12-25] MEDS: MUPIROCIN 2% 22 GM OINT TOP SCH ×2 (09:00→20:40)
[2016-12-25] MEDS: LACTOBACILLUS RHAMNOSUS CAP PO SCH ×3 (09:00→20:39)
[2016-12-25] MEDS: SODIUM HYPOCHLORITE 1/40% 1L IRRIG IRR SCH ×2 (09:00→20:40)
[2016-12-25] MEDS: ASPIRIN (EC) 325 MG TAB PO SCH (09:27)
[2016-12-25] MEDS: FUROSEMIDE 20 MG TAB PO SCH (09:27)
--- NOTE | 2016-12-25 10:25 | PN ---
Date/Time of Note Date/Time of Note DATE: 12/25/16 TIME: 10:25 Assessment/Plan VTE Prophylaxis VTE Prophylaxis Intervention: SCD's Lines/Catheters IV Catheter Type (from Nrs): Mid Line Urinary Cath still in place: No Assessment/Plan Assessment/Plan 1. Sepsis, secondary to osteomyelitis from right toe ulcer - improving and patient remains afebrile with normal WBC - Vascular Surgery consultation appreciated and patient will need to follow up as outpatient since no acute issues at this time. - Podiatry on board and recommendations appreciated. Continue daily cleansing and topical antimicrobial ointment. - ESR 15 - ID on board and recommendation appreciated. Continue broad spectrum antibiotics - Blood cultures negative. Wound gram stain negative to date - MRI shows OM 1st and 2nd distal phalanges - patient still adamant about not undergoing amputation. Patient also hesitant about receiving 6 weeks of antibiotics and after long discussion still not able to understand need for IV vs PO antibiotics for right foot Osteomyelitis 2. Atrial fibrillation, chronic - on aspirin - Currently rate controlled 3. Bilateral venous stasis, chronic - Stable 4. History of MRSA cellulitis 5. Scoliosis 6. Disposition - Awaiting recommendations from podiatry and ID - CM consult placed for assistance with setting up home health services for IV antibiotics Subjective 24 Hr Interval Summary Free Text/Dictation Patient denies any new issues. Mostly concerned about if needing antibiotics, may be a challenge to find a home health service that will travel to his home in the [facility]. No acute overnight events. Denies any pain in right foot but does has some discomfort left 2nd toe. Exam/Review of Systems Vital Signs Vitals Vital Signs Date Time Temp Pulse Resp B/P Pulse Ox O2 Delivery O2 Flow Rate FiO2 12/25/16 08:05 98.5 61 18 117/74 97 12/22/16 17:46 Room Air Intake and Output 12/24/16 12/24/16 12/25/16 14:59 22:59 06:59 Intake Total 1650 ml 1000 ml Balance 1650 ml 1000 ml Exam General: Patient in no acute distress. is laying in bed and answers questions appropriately Mentation: Patient is alert and oriented 4, Head: Normocephalic atraumatic Eyes: EOMI, pupils reactive to light Neck: Supple, nontender, midline Respiratory: Clear to auscultation bilaterally Cardiovascular: regular rate, irregular rhythm, no obvious murmurs Gastrointestinal: non-tender to palpation, bowel sounds heard. Neurological: Moves all extremities spontaneously Skin: R 2nd toe ulcer,no drainage appreciated. dry thickened skin present. Swelling 1st digit right foot present with no discharge or drainage. non tender to palpation. venous stasis changes lower extremities bilaterally. hammertoe left foot. Results Result Diagram: 12/25/16 0713 12/24/16 0924 Results 24 hrs Laboratory Tests Test 12/25/16 07:13 White Blood Count 7.6 # Red Blood Count 4.99 Hemoglobin 14.5 Hematocrit 43.2 Mean Corpuscular Volume 86.6 Mean Corpuscular Hemoglobin 29.1 Mean Corpuscular Hemoglobin Concent 33.6 Red Cell Distribution Width 14.7 H Platelet Count 170 Mean Platelet Volume 11.9 H Neutrophils % 66.5 Lymphocytes % 23.2 Monocytes % 7.2 Eosinophils % 2.0 Basophils % 0.8 Nucleated Red Blood Cells % 0.0 Neutrophils # 5.1 Lymphocytes # 1.8 Monocytes # 0.6 Eosinophils # 0.2 Basophils # 0.1 Nucleated Red Blood Cells # 0.0 Medications Medications Current Medications Sodium Chloride (1/2 NS) 1,000 ml @ 100 mls/hr Q10H IV Last administered on 09:00; Admin Dose 100 MLS/HR; Start 12/22/16 at 20:00 Lorazepam (Ativan) 0.5 mg Q8H PRN PO ANXIETY; Start 12/22/16 at 17:30 Ondansetron HCl (Zofran Inj) 4 mg Q6H PRN IV NAUSEA AND/OR VOMITING; Start 12/22/16 at 17:30 Aspirin (Ecotrin) 325 mg DAILY PO Last administered on 12/25/16 09:27; Admin Dose 325 MG; Start 12/23/16 at 09:00 Acetaminophen (Tylenol Tab) 650 mg Q6H PRN PO PAIN LEVEL 1-3 OR FEVER; Start 12/22/16 at 17:30 Acetaminophen/ Hydrocodone Bitart (Calion (5/325)) 1 tab Q6H PRN PO PAIN LEVEL 4 -6; Start 12/22/16 at 17:30 Morphine Sulfate (morphine) 2 mg Q4H PRN IV PAIN LEVEL 7-10; Start 12/22/16 at 17:30 Bisacodyl (Dulcolax) 5 mg DAILY PRN PO CONSTIPATION; Start 12/22/16 at 17:30 Pantoprazole (Protonix Tab) 40 mg DAILY@06 PO ; Start 12/23/16 at 06:00 Enoxaparin Sodium (Lovenox) 40 mg DAILY SC Last administered on 12/24/16 09: 03; Admin Dose 40 MG; Start 12/23/16 at 09:00 Furosemide (Lasix) 20 mg DAILY PO Last administered on 12/25/16 09:27; Admin Dose 20 MG; Start 12/23/16 at 09:00 Mupirocin (Bactroban) 1 applic BID TOP Last administered on 12/24/16 21:26; Admin Dose 1 APPLIC; Start 12/23/16 at 21:00 Sodium Hypochlorite 1 applic 1 applic BID IRR Last administered on 12/24/16 21:26; Admin Dose 1 APPLIC; Start 12/23/16 at 21:00 Vancomycin HCl/ Sodium Chloride (Vancocin/NS) 250 ml @ 83.333 mls/ hr Q8H IVPB Last administered on 12/25/16 05:10; Admin Dose 83.333 MLS/HR; Start at 21:00 Lactobacillus Acidophilus/ Rhamnosus 1 cap 1 cap BID PO Last administered on 21:25; Admin Dose 1 CAP; Start 12/24/16 at 21:00 Piperacillin Sod/ Tazobactam Sod (Zosyn 3.375gm/ 50 ml (Pmx)) 50 ml @ 100 mls/ hr Q6 IVPB Last administered on 12/25/16 05:13; Admin Dose 100 MLS/HR; Start 12/24/16 at 18:00 TYLER MENDIOLA MD Dec 25, 2016 10:25
[2016-12-25] MEDS: SOD CHLORIDE 0.45% 1,000 ML IV SCH ×2 (12:01→17:11)
[2016-12-25] MEDS: ENOXAPARIN 40 MG/0.4 ML SYG SC SCH (12:02)
[2016-12-25] MEDS ORDERED: LEVOFLOXACIN 500 MG TAB PO ONE (15:30)
--- NOTE | 2016-12-25 17:59 | CONS ---
Date/Time of Note Date/Time of Note DATE: 12/25/16 TIME: 17:54 Consultation Date/Type/Reason Admit Date/Time Dec 22, 2016 at 17:03 Initial Consult Date SUBJECTIVE: 61 y/o male being treated for Rt foot toes acute OM. As per report, patient refused amputation. The patient is awake, in no distress, looks comfortable, no fevers. VS: 119/71 P:57 R:18 SO2:97.9 T:96 LABS: WBC-7.6 H&H:14.5/43.2 MICROBIOLOGY: Blood cultures remain negative. Wound culture pending. Rt. SECOND TOE WOUND CULTURE Preliminary Organism 1 COAGULASE NEGATIVE STAPH QUANTITY SCANT GROWTH DIAGNOSTICS: MRI of right foot revealed osteomyelitis at the first and second distal phalanges. ANTIMICROBIALS: The patient is on IV vancomycin and Levaquin. PHYSICAL EXAMINATION: GENERAL: Well-developed elderly man who is alert, in no distress. HEENT: Head atraumatic, normocephalic. Sclerae anicteric. Buccal mucosa pink. NECK: Supple. CHEST: Rise symmetrical. Breath sounds clear. HEART: S1, S2. ABDOMEN: Soft, bowel tones present. EXTREMITIES: With right second toe and great toe swelling and erythema. ASSESSMENT: 1. Right great and second toe osteomyelitis. 2. Right foot second toe cellulitis with an evidence of osteomyelitis. 3. History of atrial fibrillation. PLAN: The patient is stable. Podiatry on case. Daily wound care and pain management. Will continue him on antibiotics. Will require 6 weeks of IV antibiotics if toe is not amputated==> IV Vanco and PO Levaquin. Type of Consultation: ID Exam/Review of Systems Vital Signs Vitals Vital Signs Date Time Temp Pulse Resp B/P Pulse Ox O2 Delivery O2 Flow Rate FiO2 12/25/16 16:32 97.9 57 18 119/71 96 12/22/16 17:46 Room Air Intake and Output 12/24/16 12/24/16 12/25/16 15:00 23:00 07:00 Intake Total 1650 ml 1000 ml Balance 1650 ml 1000 ml Results Result Diagram: 12/25/16 0713 12/24/16 0924 Results 24 hrs Laboratory Tests Test 12/25/16 07:13 White Blood Count 7.6 # Red Blood Count 4.99 Hemoglobin 14.5 Hematocrit 43.2 Mean Corpuscular Volume 86.6 Mean Corpuscular Hemoglobin 29.1 Mean Corpuscular Hemoglobin Concent 33.6 Red Cell Distribution Width 14.7 H Platelet Count 170 Mean Platelet Volume 11.9 H Neutrophils % 66.5 Lymphocytes % 23.2 Monocytes % 7.2 Eosinophils % 2.0 Basophils % 0.8 Nucleated Red Blood Cells % 0.0 Neutrophils # 5.1 Lymphocytes # 1.8 Monocytes # 0.6 Eosinophils # 0.2 Basophils # 0.1 Nucleated Red Blood Cells # 0.0 Medications Medications Current Medications Sodium Chloride (1/2 NS) 1,000 ml @ 100 mls/hr Q10H IV Last administered on 12:01; Admin Dose 100 MLS/HR; Start 12/22/16 at 20:00 Lorazepam (Ativan) 0.5 mg Q8H PRN PO ANXIETY; Start 12/22/16 at 17:30 Ondansetron HCl (Zofran Inj) 4 mg Q6H PRN IV NAUSEA AND/OR VOMITING; Start 12/22/16 at 17:30 Aspirin (Ecotrin) 325 mg DAILY PO Last administered on 12/25/16 09:27; Admin Dose 325 MG; Start 12/23/16 at 09:00 Acetaminophen (Tylenol Tab) 650 mg Q6H PRN PO PAIN LEVEL 1-3 OR FEVER; Start 12/22/16 at 17:30 Acetaminophen/ Hydrocodone Bitart ([place] (5/325)) 1 tab Q6H PRN PO PAIN LEVEL 4 -6; Start 12/22/16 at 17:30 Morphine Sulfate (morphine) 2 mg Q4H PRN IV PAIN LEVEL 7-10; Start 12/22/16 at 17:30 Bisacodyl (Dulcolax) 5 mg DAILY PRN PO CONSTIPATION; Start 12/22/16 at 17:30 Pantoprazole (Protonix Tab) 40 mg DAILY@06 PO ; Start 12/23/16 at 06:00 Enoxaparin Sodium (Lovenox) 40 mg DAILY SC Last administered on 12/25/16 12: 02; Admin Dose 40 MG; Start 12/23/16 at 09:00 Furosemide (Lasix) 20 mg DAILY PO Last administered on 12/25/16 09:27; Admin Dose 20 MG; Start 12/23/16 at 09:00 Mupirocin (Bactroban) 1 applic BID TOP Last administered on 12/24/16 21:26; Admin Dose 1 APPLIC; Start 12/23/16 at 21:00 Sodium Hypochlorite 1 applic 1 applic BID IRR Last administered on 12/24/16 21:26; Admin Dose 1 APPLIC; Start 12/23/16 at 21:00 Vancomycin HCl/ Sodium Chloride (Vancocin/NS) 250 ml @ 83.333 mls/ hr Q8H IVPB Last administered on 12/25/16 13:26; Admin Dose 83.333 MLS/HR; Start at 21:00 Lactobacillus Acidophilus/ Rhamnosus (Culturelle) 1 cap BID PO Last administered on 12/25/16 12:08; Admin Dose 1 CAP; Start 12/24/16 at 21:00 Miscellaneous Information (*Rx Drug Level Order Reminder*) VANCO TROUGH @ 2, 000 ON ... ONCE ONCE XX ; Start 12/25/16 at 20:00; Stop 12/25/16 at 20:01 Levofloxacin (Levaquin) 500 mg DAILY@06 PO ; Start 12/26/16 at 06:00 FRANCHESCA LEBLANC Dec 25, 2016 17:59
[2016-12-25] MEDS: VANCOMYCIN 1 GM in NS 250 ML IVPB SCH (21:25)
[2016-12-26] VITALS (14 sets, daily range): BP systolic 111–145; BP diastolic 65–95; PULSE 58–81; RESP 14–19
[2016-12-26] MEDS: SOD CHLORIDE 0.45% 1,000 ML IV SCH ×3 (03:49→23:31)
[2016-12-26] MEDS: PANTOPRAZOLE (EC) 40 MG TAB PO SCH (05:18)
[2016-12-26] MEDS: LEVOFLOXACIN 500 MG TAB PO SCH (06:23)
[2016-12-26] MEDS: VANCOMYCIN 1 GM in NS 250 ML IVPB SCH ×3 (06:24→21:51)
[2016-12-26 07:32] LABS: BASOPHILS % 0.5 % (0.0-2.0); EOSINOPHILS # 0.2 10^3/ul (0.0-0.5); EOSINOPHILS % 2.4 % (0.0-7.0); HEMATOCRIT 40.8 % (42.0-52.0); HEMOGLOBIN 13.6 g/dl (14.0-18.0); LYMPHOCYTES # 1.5 10^3/ul (0.8-2.9); LYMPHOCYTES % 24.1 % (15.0-51.0); MEAN CORPUSCULAR HEMOGLOBIN 29.1 pg (29.0-33.0); MEAN CORPUSCULAR HGB CONC 33.3 g/dl (32.0-37.0); MEAN CORPUSCULAR VOLUME 87.4 fl (82.0-101.0); MEAN PLATELET VOLUME 11.3 fl (7.4-10.4); MONOCYTE # 0.5 10^3/ul (0.3-0.9); MONOCYTES % 7.7 % (0.0-11.0); NEUTROPHIL # 4.2 10^3/ul (1.6-7.5); NEUTROPHILS % 65.1 % (39.0-77.0); PLATELET COUNT 137 10^3/UL (140-415); POSITIVE DIFF @See below; RED BLOOD COUNT 4.67 10^6/ul (4.70-6.10); RED CELL DISTRIBUTION WIDTH 14.6 % (11.5-14.5); WHITE BLOOD COUNT 6.4 10^3/ul (4.8-10.8)
[2016-12-26 07:55] LABS: ALBUMIN 3.6 g/dl (3.3-4.9); CALCIUM 9.3 mg/dl (8.4-10.2); CREATININE 0.78 mg/dl (0.61-1.24); MAGNESIUM 1.7 mg/dl (1.7-2.5); PHOSPHORUS 3.4 mg/dl (2.5-4.9); POTASSIUM 3.9 mmol/L (3.5-5.1)
[2016-12-26] MEDS: LACTOBACILLUS RHAMNOSUS CAP PO SCH ×2 (08:36→21:00)
[2016-12-26] MEDS: ASPIRIN (EC) 325 MG TAB PO SCH (08:36)
[2016-12-26] MEDS: FUROSEMIDE 20 MG TAB PO SCH (08:36)
[2016-12-26] MEDS: SODIUM HYPOCHLORITE 1/40% 1L IRRIG IRR SCH ×2 (08:37→21:00)
[2016-12-26] MEDS: MUPIROCIN 2% 22 GM OINT TOP SCH ×2 (08:37→21:00)
[2016-12-26] MEDS: ENOXAPARIN 40 MG/0.4 ML SYG SC SCH (08:39)
[2016-12-26] MEDS: MAGNESIUM OXIDE 400 MG TAB PO SCH (12:30)
--- NOTE | 2016-12-26 12:36 | CONS ---
Date/Time of Note Date/Time of Note DATE: 12/26/16 TIME: 12:35 Consult Date/Type/Reason Admit Date/Time Dec 22, 2016 at 17:03 Initial Consult Date Type of Consultation: ID Objective Vital Signs Date Time Temp Pulse Resp B/P Pulse Ox O2 Delivery O2 Flow Rate FiO2 12/26/16 12:14 63 12/26/16 11:31 98.0 19 111/68 99 12/22/16 17:46 Room Air Intake and Output 12/25/16 12/25/16 12/26/16 14:59 22:59 06:59 Intake Total 800 ml 1800 ml 850 ml Balance 800 ml 1800 ml 850 ml Results/Medications Result Diagram: 12/26/16 0702 12/26/16 0703 Results 24 hrs Laboratory Tests Test 12/25/16 19:51 12/26/16 07:02 12/26/16 07:03 Vancomycin Level Trough 18.6 White Blood Count 6.4 Red Blood Count 4.67 L Hemoglobin 13.6 L Hematocrit 40.8 L Mean Corpuscular Volume 87.4 Mean Corpuscular Hemoglobin 29.1 Mean Corpuscular Hemoglobin Concent 33.3 Red Cell Distribution Width 14.6 H Platelet Count 137 L Mean Platelet Volume 11.3 H Neutrophils % 65.1 Lymphocytes % 24.1 Monocytes % 7.7 Eosinophils % 2.4 Basophils % 0.5 Nucleated Red Blood Cells % 0.0 Neutrophils # 4.2 Lymphocytes # 1.5 Monocytes # 0.5 Eosinophils # 0.2 Basophils # 0.0 Nucleated Red Blood Cells # 0.0 Sodium Level 141 Potassium Level 3.9 Chloride Level 107 Carbon Dioxide Level 27 Anion Gap 11 Blood Urea Nitrogen 9 Creatinine 0.78 Glucose Level 84 Calcium Level 9.3 Phosphorus Level 3.4 Magnesium Level 1.7 Albumin 3.6 Medications Current Medications Sodium Chloride (1/2 NS) 1,000 ml @ 100 mls/hr Q10H IV Last administered on t 12:01; Admin Dose 100 MLS/HR; Start 12/22/16 at 20:00 Lorazepam (Ativan) 0.5 mg Q8H PRN PO ANXIETY; Start 12/22/16 at 17:30 Ondansetron HCl (Zofran Inj) 4 mg Q6H PRN IV NAUSEA AND/OR VOMITING; Start 12/22/16 at 17:30 Aspirin (Ecotrin) 325 mg DAILY PO Last administered on 12/26/16 08:36; Admin Dose 325 MG; Start 12/23/16 at 09:00 Acetaminophen (Tylenol Tab) 650 mg Q6H PRN PO PAIN LEVEL 1-3 OR FEVER; Start 12/22/16 at 17:30 Acetaminophen/ Hydrocodone Bitart ([place] (5/325)) 1 tab Q6H PRN PO PAIN LEVEL 4 -6; Start 12/22/16 at 17:30 Morphine Sulfate (morphine) 2 mg Q4H PRN IV PAIN LEVEL 7-10; Start 12/22/16 at 17:30 Bisacodyl (Dulcolax) 5 mg DAILY PRN PO CONSTIPATION; Start 12/22/16 at 17:30 Pantoprazole (Protonix Tab) 40 mg DAILY@06 PO ; Start 12/23/16 at 06:00 Enoxaparin Sodium (Lovenox) 40 mg DAILY SC Last administered on 12/26/16 08: 39; Admin Dose 40 MG; Start 12/23/16 at 09:00 Furosemide (Lasix) 20 mg DAILY PO Last administered on 12/26/16 08:36; Admin Dose 20 MG; Start 12/23/16 at 09:00 Mupirocin (Bactroban) 1 applic BID TOP Last administered on 12/25/16 20:40; Admin Dose 1 APPLIC; Start 12/23/16 at 21:00 Sodium Hypochlorite (Dakin'S (Dilute 1/40%)) 1 applic BID IRR Last administered on 12/25/16 20:40; Admin Dose 1 APPLIC; Start 12/23/16 at 21:00 Lactobacillus Acidophilus/ Rhamnosus (Culturelle) 1 cap BID PO Last administered on 12/26/16 08:36; Admin Dose 1 CAP; Start 12/24/16 at 21:00 Levofloxacin 500 mg 500 mg DAILY@06 PO Last administered on 12/26/16 06:23; Admin Dose 500 MG; Start 12/26/16 at 06:00 Vancomycin HCl (Vancocin) 250 ml @ 125 mls/hr Q8H IVPB Last administered on 06:24; Admin Dose 125 MLS/HR; Start 12/25/16 at 21:30 Miscellaneous Information (*Rx Drug Level Order Reminder*) 1 ONCE ONCE XX ; Start 12/26/16 at 20:30; Stop 12/26/16 at 20:31 Magnesium Oxide (Mag-Ox 400) 400 mg DAILY PO ; Start 12/26/16 at 12:30 Assessment/Plan Chief Complaint/Hosp Course SUBJECTIVE: The patient is awake, in no distress, looks comfortable, no fevers. MICROBIOLOGY: Blood cultures remain negative. Wound culture + Staph DIAGNOSTICS: MRI of right foot revealed osteomyelitis at the first and second distal phalanges. ANTIMICROBIALS: The patient is on IV vancomycin and PO Levaquin. PHYSICAL EXAMINATION: GENERAL: Well-developed elderly man who is alert, in no distress. HEENT: Head atraumatic, normocephalic. Sclerae anicteric. Buccal mucosa pink. NECK: Supple. CHEST: Rise symmetrical. Breath sounds clear. HEART: S1, S2. ABDOMEN: Soft, bowel tones present. EXTREMITIES: With right second toe and great toe swelling and erythema. ASSESSMENT: 1. Right great and second toe osteomyelitis. 2. Right foot second toe cellulitis with an evidence of osteomyelitis. 3. History of atrial fibrillation. PLAN: The patient remains stable. Refused amputation. Will require 6 weeks of IV antibiotics if toe is not amputated. DW patient Problems: AURA SPAIN NP Dec 26, 2016 12:36
--- NOTE | 2016-12-26 14:37 | PN ---
Date/Time of Note Date/Time of Note DATE: 12/26/16 TIME: 14:32 Assessment/Plan VTE Prophylaxis VTE Prophylaxis Intervention: SCD's, other Lines/Catheters [facility] Mid Line Urinary Cath still in place: No Assessment/Plan Assessment/Plan 1. Sepsis, secondary to osteomyelitis from right toe ulcer- improving - Patient remains afebrile with normal WBC - Vascular Surgery consultation appreciated and patient will need to follow up as outpatient since no acute issues at this time. - Podiatry on board and recommendations appreciated. Continue daily cleansing and topical antimicrobial ointment. - ESR 15 - ID on board and recommendation appreciated. Continue on IV Vancomycin and PO Levaquin. - Blood cultures negative. Wound gram stain shows Coag neg staph and diptheroids. - MRI shows OM 1st and 2nd distal phalanges - patient still adamant about not undergoing amputation. 2. Atrial fibrillation, chronic - on aspirin - Currently rate controlled 3. Bilateral venous stasis, chronic - Stable 4. History of MRSA cellulitis 5. Scoliosis 6. Disposition - Awaiting recommendations from podiatry and ID - CM consult placed for assistance with setting up home health services for IV antibiotics - Once antibiotics are finalized may need to discuss with SW cost since patient states has no source of income Subjective 24 Hr Interval Summary Free Text/Dictation Patient states stool is becoming more formed. Denies any new complaints. Still concerned about how he's going to afford medications due to the location of his home and financial situation. No acute overnight events. Exam/Review of Systems Vital Signs Vitals Vital Signs Date Time Temp Pulse Resp B/P Pulse Ox O2 Delivery O2 Flow Rate FiO2 12/26/16 12:14 63 12/26/16 11:31 98.0 19 111/68 99 12/22/16 17:46 Room Air Intake and Output 12/25/16 12/25/16 12/26/16 15:00 23:00 07:00 Intake Total 800 ml 1800 ml 850 ml Balance 800 ml 1800 ml 850 ml Exam General: Patient in no acute distress. is laying in bed and answers questions appropriately Mentation: Patient is alert and oriented 4, Head: Normocephalic atraumatic Eyes: EOMI, pupils reactive to light Neck: Supple, nontender, midline Respiratory: Clear to auscultation bilaterally Cardiovascular: regular rate, irregular rhythm, no obvious murmurs Gastrointestinal: non-tender to palpation, bowel sounds heard. Neurological: Moves all extremities spontaneously Skin: R 2nd toe ulcer,no drainage appreciated. dry thickened skin present. Swelling 1st digit right foot present with no discharge or drainage. non tender to palpation. venous stasis changes lower extremities bilaterally. hammertoe left foot. Results Result Diagram: 12/26/16 0702 12/26/16 0703 Results 24 hrs Laboratory Tests Test 12/25/16 19:51 12/26/16 07:02 12/26/16 07:03 Vancomycin Level Trough 18.6 White Blood Count 6.4 Red Blood Count 4.67 L Hemoglobin 13.6 L Hematocrit 40.8 L Mean Corpuscular Volume 87.4 Mean Corpuscular Hemoglobin 29.1 Mean Corpuscular Hemoglobin Concent 33.3 Red Cell Distribution Width 14.6 H Platelet Count 137 L Mean Platelet Volume 11.3 H Neutrophils % 65.1 Lymphocytes % 24.1 Monocytes % 7.7 Eosinophils % 2.4 Basophils % 0.5 Nucleated Red Blood Cells % 0.0 Neutrophils # 4.2 Lymphocytes # 1.5 Monocytes # 0.5 Eosinophils # 0.2 Basophils # 0.0 Nucleated Red Blood Cells # 0.0 Sodium Level 141 Potassium Level 3.9 Chloride Level 107 Carbon Dioxide Level 27 Anion Gap 11 Blood Urea Nitrogen 9 Creatinine 0.78 Glucose Level 84 Calcium Level 9.3 Phosphorus Level 3.4 Magnesium Level 1.7 Albumin 3.6 Medications Medications Current Medications Sodium Chloride (1/2 NS) 1,000 ml @ 100 mls/hr Q10H IV Last administered on 13:28; Admin Dose 100 MLS/HR; Start 12/22/16 at 20:00 Lorazepam (Ativan) 0.5 mg Q8H PRN PO ANXIETY; Start 12/22/16 at 17:30 Ondansetron HCl (Zofran Inj) 4 mg Q6H PRN IV NAUSEA AND/OR VOMITING; Start 12/22/16 at 17:30 Aspirin (Ecotrin) 325 mg DAILY PO Last administered on 12/26/16 08:36; Admin Dose 325 MG; Start 12/23/16 at 09:00 Acetaminophen (Tylenol Tab) 650 mg Q6H PRN PO PAIN LEVEL 1-3 OR FEVER; Start 12/22/16 at 17:30 Acetaminophen/ Hydrocodone Bitart ([place] (5/325)) 1 tab Q6H PRN PO PAIN LEVEL 4 -6; Start 12/22/16 at 17:30 Morphine Sulfate (morphine) 2 mg Q4H PRN IV PAIN LEVEL 7-10; Start 12/22/16 at 17:30 Bisacodyl (Dulcolax) 5 mg DAILY PRN PO CONSTIPATION; Start 12/22/16 at 17:30 Pantoprazole (Protonix Tab) 40 mg DAILY@06 PO ; Start 12/23/16 at 06:00 Enoxaparin Sodium (Lovenox) 40 mg DAILY SC Last administered on 12/26/16 08: 39; Admin Dose 40 MG; Start 12/23/16 at 09:00 Furosemide (Lasix) 20 mg DAILY PO Last administered on 12/26/16 08:36; Admin Dose 20 MG; Start 12/23/16 at 09:00 Mupirocin (Bactroban) 1 applic BID TOP Last administered on 12/25/16 20:40; Admin Dose 1 APPLIC; Start 12/23/16 at 21:00 Sodium Hypochlorite (Dakin'S (Dilute 1/40%)) 1 applic BID IRR Last administered on 12/25/16 20:40; Admin Dose 1 APPLIC; Start 12/23/16 at 21:00 Lactobacillus Acidophilus/ Rhamnosus (Culturelle) 1 cap BID PO Last administered on 12/26/16 08:36; Admin Dose 1 CAP; Start 12/24/16 at 21:00 Levofloxacin 500 mg 500 mg DAILY@06 PO Last administered on 12/26/16 06:23; Admin Dose 500 MG; Start 12/26/16 at 06:00 Vancomycin HCl (Vancocin) 250 ml @ 125 mls/hr Q8H IVPB Last administered on 13:28; Admin Dose 125 MLS/HR; Start 12/25/16 at 21:30 Miscellaneous Information (*Rx Drug Level Order Reminder*) 1 ONCE ONCE XX ; Start 12/26/16 at 20:30; Stop 12/26/16 at 20:31 Magnesium Oxide (Mag-Ox 400) 400 mg DAILY PO ; Start 12/26/16 at 12:30 TYLER MENDIOLA MD Dec 26, 2016 14:37
[2016-12-26 23:23] LABS: CALCIUM 9.2 mg/dl (8.4-10.2); CREATININE 0.83 mg/dl (0.61-1.24); MAGNESIUM 1.7 mg/dl (1.7-2.5); POTASSIUM 4.3 mmol/L (3.5-5.1)
[2016-12-27] VITALS (11 sets, daily range): BP systolic 122–136; BP diastolic 74–84; PULSE 53–74; RESP 18–21
[2016-12-27 00:27] LABS: THYROID STIMULATING HORMONE 1.9 MIU/L (0.465-4.680)
[2016-12-27] MEDS: VANCOMYCIN 1 GM in NS 250 ML IVPB SCH ×3 (04:35→21:37)
[2016-12-27] MEDS: PANTOPRAZOLE (EC) 40 MG TAB PO SCH (06:00)
[2016-12-27] MEDS: LEVOFLOXACIN 500 MG TAB PO SCH (06:40)
[2016-12-27] MEDS: ASPIRIN (EC) 325 MG TAB PO SCH (08:42)
[2016-12-27] MEDS: FUROSEMIDE 20 MG TAB PO SCH (08:42)
[2016-12-27] MEDS: MAGNESIUM OXIDE 400 MG TAB PO SCH (08:42)
[2016-12-27] MEDS: ENOXAPARIN 40 MG/0.4 ML SYG SC SCH (08:46)
[2016-12-27] MEDS: SODIUM HYPOCHLORITE 1/40% 1L IRRIG IRR SCH ×2 (08:47→21:42)
[2016-12-27] MEDS: LACTOBACILLUS RHAMNOSUS CAP PO SCH ×2 (08:47→21:37)
[2016-12-27] MEDS: MUPIROCIN 2% 22 GM OINT TOP SCH ×2 (08:47→21:42)
[2016-12-27] MEDS: SOD CHLORIDE 0.45% 1,000 ML IV SCH (09:52)
[2016-12-27 10:19] LABS: BASOPHILS % 0.6 % (0.0-2.0); EOSINOPHILS # 0.1 10^3/ul (0.0-0.5); HEMATOCRIT 43.5 % (42.0-52.0); HEMOGLOBIN 14.6 g/dl (14.0-18.0); LYMPHOCYTES # 1.4 10^3/ul (0.8-2.9); LYMPHOCYTES % 21.5 % (15.0-51.0); MEAN CORPUSCULAR HEMOGLOBIN 29.7 pg (29.0-33.0); MEAN CORPUSCULAR HGB CONC 33.6 g/dl (32.0-37.0); MEAN CORPUSCULAR VOLUME 88.4 fl (82.0-101.0); MEAN PLATELET VOLUME 11.6 fl (7.4-10.4); MONOCYTE # 0.5 10^3/ul (0.3-0.9); MONOCYTES % 7.6 % (0.0-11.0); NEUTROPHIL # 4.4 10^3/ul (1.6-7.5); PLATELET COUNT 160 10^3/UL (140-415); RED BLOOD COUNT 4.92 10^6/ul (4.70-6.10); RED CELL DISTRIBUTION WIDTH 14.6 % (11.5-14.5); WHITE BLOOD COUNT 6.5 10^3/ul (4.8-10.8)
[2016-12-27 10:41] LABS: ALBUMIN 3.9 g/dl (3.3-4.9); CALCIUM 9.5 mg/dl (8.4-10.2); CREATININE 0.82 mg/dl (0.61-1.24); MAGNESIUM 1.7 mg/dl (1.7-2.5); PHOSPHORUS 3.3 mg/dl (2.5-4.9); POTASSIUM 3.8 mmol/L (3.5-5.1)
--- NOTE | 2016-12-27 13:22 | CONS ---
Date/Time of Note Date/Time of Note DATE: 12/27/16 TIME: 13:20 Consult Date/Type/Reason Admit Date/Time Dec 22, 2016 at 17:03 Type of Consultation: ID Objective Vital Signs Date Time Temp Pulse Resp B/P Pulse Ox O2 Delivery O2 Flow Rate FiO2 12/27/16 12:00 74 12/27/16 08:09 97.9 21 122/82 97 Intake and Output 12/26/16 12/26/16 12/27/16 15:00 23:00 07:00 Intake Total 1350 ml 2350 ml Balance 1350 ml 2350 ml Results/Medications Result Diagram: 12/27/16 0800 12/27/16 0759 Results 24 hrs Laboratory Tests Test 12/26/16 20:23 12/27/16 07:59 12/27/16 08:00 Sodium Level 138 140 Potassium Level 4.3 3.8 Chloride Level 104 104 Carbon Dioxide Level 25 28 Anion Gap 13 12 Blood Urea Nitrogen 15 11 Creatinine 0.83 0.82 Glucose Level 91 81 Calcium Level 9.2 9.5 Magnesium Level 1.7 1.7 Thyroid Stimulating Hormone (TSH) 1.900 Vancomycin Level Trough 15.1 Phosphorus Level 3.3 Albumin 3.9 White Blood Count 6.5 Red Blood Count 4.92 Hemoglobin 14.6 Hematocrit 43.5 Mean Corpuscular Volume 88.4 Mean Corpuscular Hemoglobin 29.7 Mean Corpuscular Hemoglobin Concent 33.6 Red Cell Distribution Width 14.6 H Platelet Count 160 Mean Platelet Volume 11.6 H Neutrophils % 68.0 Lymphocytes % 21.5 Monocytes % 7.6 Eosinophils % 2.0 Basophils % 0.6 Nucleated Red Blood Cells % 0.0 Neutrophils # 4.4 Lymphocytes # 1.4 Monocytes # 0.5 Eosinophils # 0.1 Basophils # 0.0 Nucleated Red Blood Cells # 0.0 Medications Current Medications Sodium Chloride (1/2 NS) 1,000 ml @ 100 mls/hr Q10H IV Last administered on t 23:31; Admin Dose 100 MLS/HR; Start 12/22/16 at 20:00 Lorazepam (Ativan) 0.5 mg Q8H PRN PO ANXIETY; Start 12/22/16 at 17:30 Ondansetron HCl (Zofran Inj) 4 mg Q6H PRN IV NAUSEA AND/OR VOMITING; Start 12/22/16 at 17:30 Aspirin (Ecotrin) 325 mg DAILY PO Last administered on 12/27/16 08:42; Admin Dose 325 MG; Start 12/23/16 at 09:00 Acetaminophen (Tylenol Tab) 650 mg Q6H PRN PO PAIN LEVEL 1-3 OR FEVER; Start 12/22/16 at 17:30 Acetaminophen/ Hydrocodone Bitart ([place] (5/325)) 1 tab Q6H PRN PO PAIN LEVEL 4 -6; Start 12/22/16 at 17:30 Morphine Sulfate (morphine) 2 mg Q4H PRN IV PAIN LEVEL 7-10; Start 12/22/16 at 17:30 Bisacodyl (Dulcolax) 5 mg DAILY PRN PO CONSTIPATION; Start 12/22/16 at 17:30 Pantoprazole (Protonix Tab) 40 mg DAILY@06 PO ; Start 12/23/16 at 06:00 Enoxaparin Sodium (Lovenox) 40 mg DAILY SC Last administered on 12/27/16 08: 46; Admin Dose 40 MG; Start 12/23/16 at 09:00 Furosemide (Lasix) 20 mg DAILY PO Last administered on 12/27/16 08:42; Admin Dose 20 MG; Start 12/23/16 at 09:00 Mupirocin (Bactroban) 1 applic BID TOP Last administered on 12/26/16 21:00; Admin Dose 1 APPLIC; Start 12/23/16 at 21:00 Sodium Hypochlorite (Dakin'S (Dilute 1/40%)) 1 applic BID IRR Last administered on 12/26/16 21:00; Admin Dose 1 APPLIC; Start 12/23/16 at 21:00 Lactobacillus Acidophilus/ Rhamnosus 1 cap 1 cap BID PO Last administered on 08:47; Admin Dose 1 CAP; Start 12/24/16 at 21:00 Vancomycin HCl (Vancocin) 250 ml @ 125 mls/hr Q8H IVPB Last administered on 04:35; Admin Dose 125 MLS/HR; Start 12/25/16 at 21:30 Magnesium Oxide (Mag-Ox 400) 400 mg DAILY PO Last administered on 12/27/16 08 :42; Admin Dose 400 MG; Start 12/26/16 at 12:30 Assessment/Plan Chief Complaint/Hosp Course SUBJECTIVE: The patient is awake, ambulating in hallway, feels good. MICROBIOLOGY: Blood cultures remain negative. Wound culture + Staph/ Corynebact grp JK DIAGNOSTICS: MRI of right foot revealed osteomyelitis at the first and second distal phalanges. ANTIMICROBIALS: The patient is on IV vancomycin PHYSICAL EXAMINATION: GENERAL: Well-developed elderly man who is alert, in no distress. HEENT: Head atraumatic, normocephalic. Sclerae anicteric. Buccal mucosa pink. NECK: Supple. CHEST: Rise symmetrical. Breath sounds clear. HEART: S1, S2. ABDOMEN: Soft, bowel tones present. EXTREMITIES: With right second toe and great toe swelling and erythema. ASSESSMENT: 1. Right great and second toe osteomyelitis. 2. Right foot second toe cellulitis with an evidence of osteomyelitis. 3. History of atrial fibrillation. PLAN: The patient remains stable. Pending dc on 6 weeks IV Vancomycin staff Problems: AURA SPAIN NP Dec 27, 2016 13:22
--- NOTE | 2016-12-27 18:21 | PN ---
Date/Time of Note Date/Time of Note DATE: 12/27/16 TIME: 18:21 Assessment/Plan VTE Prophylaxis VTE Prophylaxis Intervention: LMWH Lines/Catheters [facility] Line Urinary Cath still in place: No Assessment/Plan Chief Complaint/Hosp Course Osetomyelitis: - Plan for home IV abx PAD: - Aspirin statin, BP control Problems: Subjective 24 Hr Interval Summary Free Text/Dictation Agrees to home IV abx. Does not want amputation Exam/Review of Systems Vital Signs Vitals Vital Signs Date Time Temp Pulse Resp B/P Pulse Ox O2 Delivery O2 Flow Rate FiO2 12/27/16 16:00 67 12/27/16 15:52 97.5 21 136/74 96 Intake and Output 12/26/16 12/26/16 12/27/16 14:59 22:59 06:59 Intake Total 1350 ml 2350 ml Balance 1350 ml 2350 ml Exam Constitutional: alert, oriented, well developed Psych: nl mood/affect, no complaints Head: atraumatic, normocephalic Eyes: EOMI, PERRL, nl conjunctiva, nl lids, nl sclera ENMT: nl external ears & nose, nl lips & teeth, nl nasal mucosa & septum Neck: non-tender, supple Respiratory: clear to auscultation, normal air movement Cardiovascular: nl pulses, regular rate and rhythm Gastrointestinal: nl liver, spleen, non-tender, soft Musculoskeletal: nl extremities to inspection, nl gait and stance Extremities: normal pulses Neurological: RN ORTHOPEDIC II-XII intact, nl mental status, nl speech, nl strength Skin: nl turgor, No rash or lesions Lymph: nl lymph nodes Results Result Diagram: 12/27/16 0800 12/27/16 0759 Results 24 hrs Laboratory Tests Test 12/26/16 20:23 12/27/16 07:59 12/27/16 08:00 Sodium Level 138 140 Potassium Level 4.3 3.8 Chloride Level 104 104 Carbon Dioxide Level 25 28 Anion Gap 13 12 Blood Urea Nitrogen 15 11 Creatinine 0.83 0.82 Glucose Level 91 81 Calcium Level 9.2 9.5 Magnesium Level 1.7 1.7 Thyroid Stimulating Hormone (TSH) 1.900 Vancomycin Level Trough 15.1 Phosphorus Level 3.3 Albumin 3.9 White Blood Count 6.5 Red Blood Count 4.92 Hemoglobin 14.6 Hematocrit 43.5 Mean Corpuscular Volume 88.4 Mean Corpuscular Hemoglobin 29.7 Mean Corpuscular Hemoglobin Concent 33.6 Red Cell Distribution Width 14.6 H Platelet Count 160 Mean Platelet Volume 11.6 H Neutrophils % 68.0 Lymphocytes % 21.5 Monocytes % 7.6 Eosinophils % 2.0 Basophils % 0.6 Nucleated Red Blood Cells % 0.0 Neutrophils # 4.4 Lymphocytes # 1.4 Monocytes # 0.5 Eosinophils # 0.1 Basophils # 0.0 Nucleated Red Blood Cells # 0.0 Medications Medications Current Medications Lorazepam (Ativan) 0.5 mg Q8H PRN PO ANXIETY; Start 12/22/16 at 17:30 Ondansetron HCl (Zofran Inj) 4 mg Q6H PRN IV NAUSEA AND/OR VOMITING; Start 12/22/16 at 17:30 Aspirin (Ecotrin) 325 mg DAILY PO Last administered on 12/27/16 08:42; Admin Dose 325 MG; Start 12/23/16 at 09:00 Acetaminophen (Tylenol Tab) 650 mg Q6H PRN PO PAIN LEVEL 1-3 OR FEVER; Start 12/22/16 at 17:30 Acetaminophen/ Hydrocodone Bitart ([place] (5/325)) 1 tab Q6H PRN PO PAIN LEVEL 4 -6; Start 12/22/16 at 17:30 Morphine Sulfate (morphine) 2 mg Q4H PRN IV PAIN LEVEL 7-10; Start 12/22/16 at 17:30 Bisacodyl (Dulcolax) 5 mg DAILY PRN PO CONSTIPATION; Start 12/22/16 at 17:30 Pantoprazole (Protonix Tab) 40 mg DAILY@06 PO ; Start 12/23/16 at 06:00 Enoxaparin Sodium (Lovenox) 40 mg DAILY SC Last administered on 12/27/16 08: 46; Admin Dose 40 MG; Start 12/23/16 at 09:00 Furosemide (Lasix) 20 mg DAILY PO Last administered on 12/27/16 08:42; Admin Dose 20 MG; Start 12/23/16 at 09:00 Mupirocin (Bactroban) 1 applic BID TOP Last administered on 12/26/16 21:00; Admin Dose 1 APPLIC; Start 12/23/16 at 21:00 Sodium Hypochlorite (Dakin'S (Dilute 1/40%)) 1 applic BID IRR Last administered on 12/26/16 21:00; Admin Dose 1 APPLIC; Start 12/23/16 at 21:00 Lactobacillus Acidophilus/ Rhamnosus 1 cap 1 cap BID PO Last administered on 08:47; Admin Dose 1 CAP; Start 12/24/16 at 21:00 Vancomycin HCl (Vancocin) 250 ml @ 125 mls/hr Q8H IVPB Last administered on 13:44; Admin Dose 125 MLS/HR; Start 12/25/16 at 21:30 Magnesium Oxide (Mag-Ox 400) 400 mg DAILY PO Last administered on 12/27/16 08 :42; Admin Dose 400 MG; Start 12/26/16 at 12:30 JOEL GUZMAN MD Dec 27, 2016 18:21
[2016-12-28] VITALS (10 sets, daily range): BP systolic 101–143; BP diastolic 71–99; PULSE 51–82; RESP 18–21
[2016-12-28] MEDS: PANTOPRAZOLE (EC) 40 MG TAB PO SCH (05:21)
[2016-12-28] MEDS: VANCOMYCIN 1 GM in NS 250 ML IVPB SCH ×3 (06:14→21:20)
[2016-12-28 07:59] LABS: ALBUMIN 3.8 g/dl (3.3-4.9); CALCIUM 9.7 mg/dl (8.4-10.2); CREATININE 0.81 mg/dl (0.61-1.24); MAGNESIUM 1.7 mg/dl (1.7-2.5); PHOSPHORUS 3.7 mg/dl (2.5-4.9); POTASSIUM 3.9 mmol/L (3.5-5.1)
[2016-12-28] MEDS: ASPIRIN (EC) 325 MG TAB PO SCH (08:32)
[2016-12-28] MEDS: MAGNESIUM OXIDE 400 MG TAB PO SCH (08:33)
[2016-12-28] MEDS: SODIUM HYPOCHLORITE 1/40% 1L IRRIG IRR SCH ×2 (08:33→21:00)
[2016-12-28] MEDS: FUROSEMIDE 20 MG TAB PO SCH (08:33)
[2016-12-28] MEDS: MUPIROCIN 2% 22 GM OINT TOP SCH ×2 (08:34→21:00)
[2016-12-28] MEDS: ENOXAPARIN 40 MG/0.4 ML SYG SC SCH (09:00)
[2016-12-28] MEDS: LACTOBACILLUS RHAMNOSUS CAP PO SCH ×2 (09:00→21:18)
[2016-12-28] MEDS ORDERED: HYDROGEN PEROXIDE 118 ML TOP ONE (11:30)
--- NOTE | 2016-12-28 13:11 | CONS ---
Date/Time of Note Date/Time of Note DATE: 12/28/16 TIME: 13:10 Consult Date/Type/Reason Admit Date/Time Dec 22, 2016 at 17:03 Type of Consultation: ID Objective Vital Signs Date Time Temp Pulse Resp B/P Pulse Ox O2 Delivery O2 Flow Rate FiO2 12/28/16 12:11 80 12/28/16 11:41 21 101/77 96 12/28/16 07:47 97.9 Intake and Output 12/27/16 12/27/16 12/28/16 15:00 23:00 07:00 Intake Total 2130 ml 850 ml Balance 2130 ml 850 ml Results/Medications Result Diagram: 12/27/16 0800 12/28/16 0622 Results 24 hrs Laboratory Tests Test 12/28/16 06:22 Sodium Level 141 Potassium Level 3.9 Chloride Level 105 Carbon Dioxide Level 28 Anion Gap 12 Blood Urea Nitrogen 12 Creatinine 0.81 Glucose Level 82 Calcium Level 9.7 Phosphorus Level 3.7 Magnesium Level 1.7 Albumin 3.8 Medications Current Medications Lorazepam (Ativan) 0.5 mg Q8H PRN PO ANXIETY; Start 12/22/16 at 17:30 Ondansetron HCl (Zofran Inj) 4 mg Q6H PRN IV NAUSEA AND/OR VOMITING; Start 12/22/16 at 17:30 Acetaminophen (Tylenol Tab) 650 mg Q6H PRN PO PAIN LEVEL 1-3 OR FEVER; Start 12/22/16 at 17:30 Acetaminophen/ Hydrocodone Bitart ([place] (5/325)) 1 tab Q6H PRN PO PAIN LEVEL 4 -6; Start 12/22/16 at 17:30 Morphine Sulfate (morphine) 2 mg Q4H PRN IV PAIN LEVEL 7-10; Start 12/22/16 at 17:30 Bisacodyl (Dulcolax) 5 mg DAILY PRN PO CONSTIPATION; Start 12/22/16 at 17:30 Pantoprazole (Protonix Tab) 40 mg DAILY@06 PO ; Start 12/23/16 at 06:00 Enoxaparin Sodium (Lovenox) 40 mg DAILY SC Last administered on 12/27/16 08: 46; Admin Dose 40 MG; Start 12/23/16 at 09:00 Furosemide (Lasix) 20 mg DAILY PO Last administered on 12/28/16 08:33; Admin Dose 20 MG; Start 12/23/16 at 09:00 Mupirocin (Bactroban) 1 applic BID TOP Last administered on 12/28/16 08:34; Admin Dose 1 APPLIC; Start 12/23/16 at 21:00 Sodium Hypochlorite (Dakin'S (Dilute 1/40%)) 1 applic BID IRR Last administered on 12/28/16 08:33; Admin Dose 1 APPLIC; Start 12/23/16 at 21:00 Lactobacillus Acidophilus/ Rhamnosus 1 cap 1 cap BID PO Last administered on 21:37; Admin Dose 1 CAP; Start 12/24/16 at 21:00 Vancomycin HCl (Vancocin) 250 ml @ 125 mls/hr Q8H IVPB Last administered on 06:14; Admin Dose 125 MLS/HR; Start 12/25/16 at 21:30 Magnesium Oxide (Mag-Ox 400) 400 mg DAILY PO Last administered on 12/28/16 08 :33; Admin Dose 400 MG; Start 12/26/16 at 12:30 Aspirin (Halfprin) 81 mg DAILY PO ; Start 12/29/16 at 09:00 Atorvastatin Calcium (Lipitor) 80 mg HS PO ; Start 12/28/16 at 21:00 Assessment/Plan Chief Complaint/Hosp Course SUBJECTIVE: No events. MICROBIOLOGY: Blood cultures remain negative. Wound culture + Staph/ Corynebact grp JK DIAGNOSTICS: MRI of right foot revealed osteomyelitis at the first and second distal phalanges. ANTIMICROBIALS: The patient is on IV vancomycin PHYSICAL EXAMINATION: GENERAL: Well-developed elderly man who is alert, in no distress. HEENT: Head atraumatic, normocephalic. Sclerae anicteric. Buccal mucosa pink. NECK: Supple. CHEST: Rise symmetrical. Breath sounds clear. HEART: S1, S2. ABDOMEN: Soft, bowel tones present. EXTREMITIES: With right second toe and great toe swelling and erythema. ASSESSMENT: 1. Right great and second toe osteomyelitis. 2. Right foot second toe cellulitis with an evidence of osteomyelitis. 3. History of atrial fibrillation. PLAN: The patient remains stable. Pending dc on 6 weeks IV Vancomycin DW staff Problems: AURA SPAIN NP Dec 28, 2016 13:11
[2016-12-28] MEDS ORDERED: LIDOCAINE 1% (MPF) 5 ML VIAL SC ONE (15:00)
--- NOTE | 2016-12-28 15:05 | PN ---
Date/Time of Note Date/Time of Note DATE: 12/28/16 TIME: 15:03 Assessment/Plan VTE Prophylaxis VTE Prophylaxis Intervention: other Lines/Catheters IV Catheter Type (from Nrsg): Mid Line Urinary Cath still in place: No Assessment/Plan Chief Complaint/Hosp Course 61 yo male wtih h/o venous statis dermatitis, chronic OM of R toe and permanent atrial fibrillation Osetomyelitis: - Plan for home IV abx, PICC to be placed PAD: - Aspirin statin, BP control Venous statis: - Lasix 20 mg for now, likely change to less potent diuretic at discharge Atrial fibrillation: - Discussed anticoagulation at [facility]. He prefers to continue aspirin for now Discharge to home when arrangement for home IV abx are made Problems: Subjective 24 Hr Interval Summary Free Text/Dictation Arranging for home IV abx Discussed at length his A Fib and recommendation for anticoagulation. He is considering it but seems very against taking another medication. Says he will consider it later. Exam/Review of Systems Vital Signs Vitals Vital Signs Date Time Temp Pulse Resp B/P Pulse Ox O2 Delivery O2 Flow Rate FiO2 12/28/16 12:11 80 12/28/16 11:41 21 101/77 96 12/28/16 07:47 97.9 Intake and Output 12/27/16 12/27/16 12/28/16 15:00 23:00 07:00 Intake Total 2130 ml 850 ml Balance 2130 ml 850 ml Exam Constitutional: alert, oriented, well developed Psych: nl mood/affect, no complaints Head: atraumatic, normocephalic Eyes: EOMI, PERRL, nl conjunctiva, nl lids, nl sclera ENMT: nl external ears & nose, nl lips & teeth, nl nasal mucosa & septum Neck: non-tender, supple Respiratory: clear to auscultation, normal air movement Cardiovascular: nl pulses, regular rate and rhythm Gastrointestinal: nl liver, spleen, non-tender, soft Musculoskeletal: nl extremities to inspection, nl gait and stance Extremities: normal pulses Neurological: FORMER HAND II-XII intact, nl mental status, nl speech, nl strength Skin: nl turgor, No rash or lesions Lymph: nl lymph nodes Results Result Diagram: 12/27/16 0800 12/28/16 0622 Results 24 hrs Laboratory Tests Test 12/28/16 06:22 Sodium Level 141 Potassium Level 3.9 Chloride Level 105 Carbon Dioxide Level 28 Anion Gap 12 Blood Urea Nitrogen 12 Creatinine 0.81 Glucose Level 82 Calcium Level 9.7 Phosphorus Level 3.7 Magnesium Level 1.7 Albumin 3.8 Medications Medications Current Medications Lorazepam (Ativan) 0.5 mg Q8H PRN PO ANXIETY; Start 12/22/16 at 17:30 Ondansetron HCl (Zofran Inj) 4 mg Q6H PRN IV NAUSEA AND/OR VOMITING; Start 12/22/16 at 17:30 Acetaminophen (Tylenol Tab) 650 mg Q6H PRN PO PAIN LEVEL 1-3 OR FEVER; Start 12/22/16 at 17:30 Acetaminophen/ Hydrocodone Bitart ([place] (5/325)) 1 tab Q6H PRN PO PAIN LEVEL 4 -6; Start 12/22/16 at 17:30 Morphine Sulfate (morphine) 2 mg Q4H PRN IV PAIN LEVEL 7-10; Start 12/22/16 at 17:30 Bisacodyl (Dulcolax) 5 mg DAILY PRN PO CONSTIPATION; Start 12/22/16 at 17:30 Pantoprazole (Protonix Tab) 40 mg DAILY@06 PO ; Start 12/23/16 at 06:00 Enoxaparin Sodium (Lovenox) 40 mg DAILY SC Last administered on 12/27/16 08: 46; Admin Dose 40 MG; Start 12/23/16 at 09:00 Furosemide (Lasix) 20 mg DAILY PO Last administered on 12/28/16 08:33; Admin Dose 20 MG; Start 12/23/16 at 09:00 Mupirocin (Bactroban) 1 applic BID TOP Last administered on 12/28/16 08:34; Admin Dose 1 APPLIC; Start 12/23/16 at 21:00 Sodium Hypochlorite (Dakin'S (Dilute 1/40%)) 1 applic BID IRR Last administered on 12/28/16 08:33; Admin Dose 1 APPLIC; Start 12/23/16 at 21:00 Lactobacillus Acidophilus/ Rhamnosus 1 cap 1 cap BID PO Last administered on 21:37; Admin Dose 1 CAP; Start 12/24/16 at 21:00 Vancomycin HCl (Vancocin) 250 ml @ 125 mls/hr Q8H IVPB Last administered on 13:18; Admin Dose 125 MLS/HR; Start 12/25/16 at 21:30 Magnesium Oxide (Mag-Ox 400) 400 mg DAILY PO Last administered on 12/28/16 08 :33; Admin Dose 400 MG; Start 12/26/16 at 12:30 Aspirin (Halfprin) 81 mg DAILY PO ; Start 12/29/16 at 09:00 Atorvastatin Calcium (Lipitor) 80 mg HS PO ; Start 12/28/16 at 21:00 JOEL GUZMAN MD Dec 28, 2016 15:05
[2016-12-28] MEDS: ATORVASTATIN 80 MG TAB PO SCH (21:00)
[2016-12-29] VITALS (12 sets, daily range): BP systolic 109–139; BP diastolic 68–81; PULSE 54–98; RESP 16–21
[2016-12-29] MEDS: PANTOPRAZOLE (EC) 40 MG TAB PO SCH (06:00)
[2016-12-29] MEDS: VANCOMYCIN 1 GM in NS 250 ML IVPB SCH ×3 (06:31→22:16)
[2016-12-29] MEDS: LACTOBACILLUS RHAMNOSUS CAP PO SCH ×2 (08:54→20:55)
[2016-12-29] MEDS: MAGNESIUM OXIDE 400 MG TAB PO SCH (08:54)
[2016-12-29] MEDS: SODIUM HYPOCHLORITE 1/40% 1L IRRIG IRR SCH ×2 (09:00→20:58)
[2016-12-29] MEDS ORDERED: ASPIRIN (EC) 81 MG TAB PO SCH (09:00)
[2016-12-29] MEDS: MUPIROCIN 2% 22 GM OINT TOP SCH ×2 (09:00→20:57)
[2016-12-29] MEDS: FUROSEMIDE 20 MG TAB PO SCH (09:02)
[2016-12-29] MEDS: ENOXAPARIN 40 MG/0.4 ML SYG SC SCH (09:05)
[2016-12-29] MEDS: ASPIRIN 325 MG TAB PO SCH (12:54)
[2016-12-29] MEDS: MULTIVITAMINS THERAPEUTIC TAB PO SCH (12:54)
--- NOTE | 2016-12-29 14:20 | CONS ---
Date/Time of Note Date/Time of Note DATE: 12/29/16 TIME: 14:19 Consult Date/Type/Reason Admit Date/Time Dec 22, 2016 at 17:03 Type of Consultation: ID Objective Vital Signs Date Time Temp Pulse Resp B/P Pulse Ox O2 Delivery O2 Flow Rate FiO2 12/29/16 12:10 70 12/29/16 11:50 98.5 19 111/69 95 12/29/16 09:00 Room Air Intake and Output 12/28/16 12/28/16 12/29/16 15:00 23:00 07:00 Intake Total 2050 ml 500 ml Balance 2050 ml 500 ml Results/Medications Result Diagram: 12/27/16 0800 12/28/16 0622 Medications Current Medications Lorazepam (Ativan) 0.5 mg Q8H PRN PO ANXIETY; Start 12/22/16 at 17:30 Ondansetron HCl (Zofran Inj) 4 mg Q6H PRN IV NAUSEA AND/OR VOMITING; Start 12/22/16 at 17:30 Acetaminophen (Tylenol Tab) 650 mg Q6H PRN PO PAIN LEVEL 1-3 OR FEVER; Start 12/22/16 at 17:30 Acetaminophen/ Hydrocodone Bitart ([place] (5/325)) 1 tab Q6H PRN PO PAIN LEVEL 4 -6; Start 12/22/16 at 17:30 Morphine Sulfate (morphine) 2 mg Q4H PRN IV PAIN LEVEL 7-10; Start 12/22/16 at 17:30 Bisacodyl (Dulcolax) 5 mg DAILY PRN PO CONSTIPATION; Start 12/22/16 at 17:30 Pantoprazole (Protonix Tab) 40 mg DAILY@06 PO ; Start 12/23/16 at 06:00 Enoxaparin Sodium (Lovenox) 40 mg DAILY SC Last administered on 12/29/16 09: 05; Admin Dose 40 MG; Start 12/23/16 at 09:00 Furosemide (Lasix) 20 mg DAILY PO Last administered on 12/29/16 09:02; Admin Dose 20 MG; Start 12/23/16 at 09:00 Mupirocin (Bactroban) 1 applic BID TOP Last administered on 12/28/16 08:34; Admin Dose 1 APPLIC; Start 12/23/16 at 21:00 Sodium Hypochlorite (Dakin'S (Dilute 1/40%)) 1 applic BID IRR Last administered on 12/28/16 08:33; Admin Dose 1 APPLIC; Start 12/23/16 at 21:00 Lactobacillus Acidophilus/ Rhamnosus 1 cap 1 cap BID PO Last administered on 08:54; Admin Dose 1 CAP; Start 12/24/16 at 21:00 Vancomycin HCl (Vancocin) 250 ml @ 125 mls/hr Q8H IVPB Last administered on 12:54; Admin Dose 125 MLS/HR; Start 12/25/16 at 21:30 Magnesium Oxide (Mag-Ox 400) 400 mg DAILY PO Last administered on 12/29/16 08 :54; Admin Dose 400 MG; Start 12/26/16 at 12:30 Atorvastatin Calcium (Lipitor) 80 mg HS PO ; Start 12/28/16 at 21:00 Aspirin (Aspirin) 325 mg DAILY PO Last administered on 12/29/16 12:54; Admin Dose 325 MG; Start 12/29/16 at 12:30 Ascorbic Acid (Vitamin C) 500 mg BID PO ; Start 12/29/16 at 21:00 Multivitamins Therapeutic (Theragran) 1 tab DAILY PO Last administered on 12/29 12:54; Admin Dose 1 TAB; Start 12/29/16 at 12:30 Miscellaneous Information (*Rx Drug Level Order Reminder*) VANCO TROUGH @ 2, 030 ON ... ONCE ONCE XX ; Start 12/29/16 at 20:30; Stop 12/29/16 at 20:31 Assessment/Plan Chief Complaint/Hosp Course SUBJECTIVE: No events. Alert, feels good, no fevers MICROBIOLOGY: Blood cultures remain negative. Wound culture + Staph/ Corynebact grp JK DIAGNOSTICS: MRI of right foot revealed osteomyelitis at the first and second distal phalanges. ANTIMICROBIALS: The patient is on IV vancomycin PHYSICAL EXAMINATION: GENERAL: Well-developed elderly man who is alert, in no distress. HEENT: Head atraumatic, normocephalic. Sclerae anicteric. Buccal mucosa pink. NECK: Supple. CHEST: Rise symmetrical. Breath sounds clear. HEART: S1, S2. ABDOMEN: Soft, bowel tones present. EXTREMITIES: With right second toe and great toe swelling and erythema. ASSESSMENT: 1. Right great and second toe osteomyelitis. 2. Right foot second toe cellulitis with an evidence of osteomyelitis. 3. History of atrial fibrillation. PLAN: The patient remains stable. Pending dc home on 6 weeks IV Vancomycin DW patient Problems: AURA SPAIN NP Dec 29, 2016 14:20
--- NOTE | 2016-12-29 16:15 | RADRPT ---
PROCEDURE: XR Chest. CLINICAL INDICATION: PICC line placement TECHNIQUE: Single frontal view of the chest was obtained COMPARISON: None FINDINGS: There is a new left-sided PICC line in place with its tip overlying the cavoatrial junction. There is moderate cardiomegaly. There is right lower lobe opacity. There is no pleural effusion or p neumothorax. RPTAT: AA IMPRESSION: New PICC line in appropriate position. Right lower lobe opacity, may represent consolidation versus mass. Further evaluation with a CT ches t is recommended.. .Angel Marcelino MD, MD Date Time Electronically viewed and signed by .Angel Marcelino MD, MD on 12/29/2016 16:14 .S/
--- NOTE | 2016-12-29 16:16 | RADRPT ---
PROCEDURE: US guidance for PICC line CLINICAL INDICATION: PICC line placement TECHNIQUE: Multiple real-time images were acquired of the patient's arm utilizing a high resolutio n transducer. This was performed by the PICC line nurse for venous access. COMPARISON: None FINDINGS: Ultrasound guidance for PICC line placement. IMPRESSION: Ultrasound guidance for PICC line placement. RPTAT: AA .Angel Marcelino MD, MD Date Time Electronically viewed and signed by .Angel Marcelino MD, on 12/29/2016 16:15 .S/
[2016-12-29] MEDS ORDERED: SOD CHLORIDE 0.9% 100 ML ONE (17:00)
--- NOTE | 2016-12-29 19:07 | PN ---
Date/Time of Note Date/Time of Note DATE: 12/29/16 TIME: 19:05 Assessment/Plan VTE Prophylaxis VTE Prophylaxis Intervention: heparin Lines/Catheters IV Catheter Type (from Nrsg): PICC Line Central line still needed: Yes Urinary Cath still in place: No Assessment/Plan Chief Complaint/Hosp Course 61 yo male wtih h/o venous statis dermatitis, chronic OM of R toe and permanent atrial fibrillation Osetomyelitis: - Plan for home IV abx, PICC placed - Vanco x 6 weeks total PAD: - Aspirin, refuses statin, BP controlled Venous statis: - Lasix 20 mg for now, likely change to less potent diuretic at discharge Atrial fibrillation: - Discussed anticoagulation at [facility]. He prefers to continue aspirin for now Discharge to home when arrangement for home IV abx are made Problems: Subjective 24 Hr Interval Summary Free Text/Dictation Agreed to home abx via PICC PICC placed today Exam/Review of Systems Vital Signs Vitals Vital Signs Date Time Temp Pulse Resp B/P Pulse Ox O2 Delivery O2 Flow Rate FiO2 12/29/16 16:05 56 12/29/16 16:02 98.1 19 109/70 97 12/29/16 09:00 Room Air Intake and Output 12/28/16 12/28/16 12/29/16 15:00 23:00 07:00 Intake Total 2050 ml 500 ml Balance 2050 ml 500 ml Exam Constitutional: alert, oriented, well developed Psych: nl mood/affect, no complaints Head: atraumatic, normocephalic Eyes: EOMI, PERRL, nl conjunctiva, nl lids, nl sclera ENMT: nl external ears & nose, nl lips & teeth, nl nasal mucosa & septum Neck: non-tender, supple Respiratory: clear to auscultation, normal air movement Cardiovascular: nl pulses, regular rate and rhythm Gastrointestinal: nl liver, spleen, non-tender, soft Musculoskeletal: nl extremities to inspection, nl gait and stance Extremities: normal pulses Neurological: FOOD AND BEVERAGE COORDINATOR II-XII intact, nl mental status, nl speech, nl strength Skin: nl turgor, No rash or lesions Lymph: nl lymph nodes Results Result Diagram: 12/27/16 0800 12/28/16 0622 Medications Medications Current Medications Lorazepam (Ativan) 0.5 mg Q8H PRN PO ANXIETY; Start 12/22/16 at 17:30 Ondansetron HCl (Zofran Inj) 4 mg Q6H PRN IV NAUSEA AND/OR VOMITING; Start 12/22/16 at 17:30 Acetaminophen (Tylenol Tab) 650 mg Q6H PRN PO PAIN LEVEL 1-3 OR FEVER; Start 12/22/16 at 17:30 Acetaminophen/ Hydrocodone Bitart ([place] (5/325)) 1 tab Q6H PRN PO PAIN LEVEL 4 -6; Start 12/22/16 at 17:30 Morphine Sulfate (morphine) 2 mg Q4H PRN IV PAIN LEVEL 7-10; Start 12/22/16 at 17:30 Bisacodyl (Dulcolax) 5 mg DAILY PRN PO CONSTIPATION; Start 12/22/16 at 17:30 Pantoprazole (Protonix Tab) 40 mg DAILY@06 PO ; Start 12/23/16 at 06:00 Enoxaparin Sodium (Lovenox) 40 mg DAILY SC Last administered on 12/29/16 09: 05; Admin Dose 40 MG; Start 12/23/16 at 09:00 Furosemide (Lasix) 20 mg DAILY PO Last administered on 12/29/16 09:02; Admin Dose 20 MG; Start 12/23/16 at 09:00 Mupirocin (Bactroban) 1 applic BID TOP Last administered on 12/28/16 08:34; Admin Dose 1 APPLIC; Start 12/23/16 at 21:00 Sodium Hypochlorite (Dakin'S (Dilute 1/40%)) 1 applic BID IRR Last administered on 12/28/16 08:33; Admin Dose 1 APPLIC; Start 12/23/16 at 21:00 Lactobacillus Acidophilus/ Rhamnosus 1 cap 1 cap BID PO Last administered on 08:54; Admin Dose 1 CAP; Start 12/24/16 at 21:00 Vancomycin HCl (Vancocin) 250 ml @ 125 mls/hr Q8H IVPB Last administered on 12:54; Admin Dose 125 MLS/HR; Start 12/25/16 at 21:30 Magnesium Oxide (Mag-Ox 400) 400 mg DAILY PO Last administered on 12/29/16 08 :54; Admin Dose 400 MG; Start 12/26/16 at 12:30 Atorvastatin Calcium (Lipitor) 80 mg HS PO ; Start 12/28/16 at 21:00 Aspirin (Aspirin) 325 mg DAILY PO Last administered on 12/29/16 12:54; Admin Dose 325 MG; Start 12/29/16 at 12:30 Ascorbic Acid (Vitamin C) 500 mg BID PO ; Start 12/29/16 at 21:00 Multivitamins Therapeutic (Theragran) 1 tab DAILY PO Last administered on 12/29 12:54; Admin Dose 1 TAB; Start 12/29/16 at 12:30 Miscellaneous Information (*Rx Drug Level Order Reminder*) VANCO TROUGH @ 2, 030 ON ... ONCE ONCE XX ; Start 12/29/16 at 20:30; Stop 12/29/16 at 20:31 IV Flush (NS 10 ml) 10 ml PRN PRN IV IV PROTOCOL; Start 12/29/16 at 17:30 JOEL GUZMAN MD Dec 29, 2016 19:07
[2016-12-29] MEDS: ASCORBIC ACID 500 MG TAB PO SCH (20:55)
[2016-12-29] MEDS: ATORVASTATIN 80 MG TAB PO SCH (20:55)
[2016-12-30] VITALS (9 sets, daily range): BP systolic 121–132; BP diastolic 70–81; PULSE 46–75; RESP 19–20
[2016-12-30] MEDS: PANTOPRAZOLE (EC) 40 MG TAB PO SCH (06:00)
[2016-12-30] MEDS: VANCOMYCIN 1 GM in NS 250 ML IVPB SCH ×2 (06:40→14:07)
[2016-12-30] MEDS: ASCORBIC ACID 500 MG TAB PO SCH (09:03)
[2016-12-30] MEDS: ASPIRIN 325 MG TAB PO SCH (09:03)
[2016-12-30] MEDS: MULTIVITAMINS THERAPEUTIC TAB PO SCH (09:03)
[2016-12-30] MEDS: MAGNESIUM OXIDE 400 MG TAB PO SCH (09:03)
[2016-12-30] MEDS: LACTOBACILLUS RHAMNOSUS CAP PO SCH (09:03)
[2016-12-30] MEDS: ENOXAPARIN 40 MG/0.4 ML SYG SC SCH (09:04)
[2016-12-30] MEDS: SODIUM HYPOCHLORITE 1/40% 1L IRRIG IRR SCH (09:04)
[2016-12-30] MEDS: MUPIROCIN 2% 22 GM OINT TOP SCH (09:05)
[2016-12-30] MEDS: FUROSEMIDE 20 MG TAB PO SCH (09:05)
--- NOTE | 2016-12-30 14:04 | CONS ---
Date/Time of Note Date/Time of Note DATE: 12/30/16 TIME: 14:03 Consult Date/Type/Reason Admit Date/Time Dec 22, 2016 at 17:03 Type of Consultation: ID Objective Vital Signs Date Time Temp Pulse Resp B/P Pulse Ox O2 Delivery O2 Flow Rate FiO2 12/30/16 12:28 67 12/30/16 11:39 97.6 19 129/75 96 12/29/16 09:00 Room Air Intake and Output 12/29/16 12/29/16 12/30/16 15:00 23:00 07:00 Intake Total 800 ml 250 ml Balance 800 ml 250 ml Results/Medications Result Diagram: 12/27/16 0800 12/28/16 0622 Results 24 hrs Laboratory Tests Test 12/29/16 20:40 Vancomycin Level Trough 13.2 Medications Current Medications Lorazepam (Ativan) 0.5 mg Q8H PRN PO ANXIETY; Start 12/22/16 at 17:30 Ondansetron HCl (Zofran Inj) 4 mg Q6H PRN IV NAUSEA AND/OR VOMITING; Start 12/22/16 at 17:30 Acetaminophen (Tylenol Tab) 650 mg Q6H PRN PO PAIN LEVEL 1-3 OR FEVER; Start 12/22/16 at 17:30 Acetaminophen/ Hydrocodone Bitart ([place] (5/325)) 1 tab Q6H PRN PO PAIN LEVEL 4 -6; Start 12/22/16 at 17:30 Morphine Sulfate (morphine) 2 mg Q4H PRN IV PAIN LEVEL 7-10; Start 12/22/16 at 17:30 Bisacodyl (Dulcolax) 5 mg DAILY PRN PO CONSTIPATION; Start 12/22/16 at 17:30 Pantoprazole (Protonix Tab) 40 mg DAILY@06 PO ; Start 12/23/16 at 06:00 Enoxaparin Sodium (Lovenox) 40 mg DAILY SC Last administered on 12/30/16 09: 04; Admin Dose 40 MG; Start 12/23/16 at 09:00 Furosemide (Lasix) 20 mg DAILY PO Last administered on 12/30/16 09:05; Admin Dose 20 MG; Start 12/23/16 at 09:00 Mupirocin (Bactroban) 1 applic BID TOP Last administered on 12/30/16 09:05; Admin Dose 1 APPLIC; Start 12/23/16 at 21:00 Sodium Hypochlorite (Dakin'S (Dilute 1/40%)) 1 applic BID IRR Last administered on 12/30/16 09:04; Admin Dose 1 APPLIC; Start 12/23/16 at 21:00 Lactobacillus Acidophilus/ Rhamnosus 1 cap 1 cap BID PO Last administered on 09:03; Admin Dose 1 CAP; Start 12/24/16 at 21:00 Vancomycin HCl (Vancocin) 250 ml @ 125 mls/hr Q8H IVPB Last administered on 06:40; Admin Dose 125 MLS/HR; Start 12/25/16 at 21:30 Magnesium Oxide (Mag-Ox 400) 400 mg DAILY PO Last administered on 12/30/16 09 :03; Admin Dose 400 MG; Start 12/26/16 at 12:30 Atorvastatin Calcium (Lipitor) 80 mg HS PO ; Start 12/28/16 at 21:00 Aspirin (Aspirin) 325 mg DAILY PO Last administered on 12/30/16 09:03; Admin Dose 325 MG; Start 12/29/16 at 12:30 Ascorbic Acid (Vitamin C) 500 mg BID PO Last administered on 12/30/16 09:03; Admin Dose 500 MG; Start 12/29/16 at 21:00 Multivitamins Therapeutic (Theragran) 1 tab DAILY PO Last administered on 12/30 09:03; Admin Dose 1 TAB; Start 12/29/16 at 12:30 IV Flush (NS 10 ml) 10 ml PRN PRN IV IV PROTOCOL; Start 12/29/16 at 17:30 Assessment/Plan Chief Complaint/Hosp Course SUBJECTIVE: No events. Alert, no fevers MICROBIOLOGY: Blood cultures remain negative. Wound culture + Staph/ Corynebact grp JK DIAGNOSTICS: MRI of right foot revealed osteomyelitis at the first and second distal phalanges. ANTIMICROBIALS: The patient is on IV vancomycin PHYSICAL EXAMINATION: GENERAL: Well-developed elderly man who is alert, in no distress. HEENT: Head atraumatic, normocephalic. Sclerae anicteric. Buccal mucosa pink. NECK: Supple. CHEST: Rise symmetrical. Breath sounds clear. HEART: S1, S2. ABDOMEN: Soft, bowel tones present. EXTREMITIES: With right second toe and great toe swelling and erythema. ASSESSMENT: 1. Right great and second toe osteomyelitis. 2. Right foot second toe cellulitis with an evidence of osteomyelitis. 3. History of atrial fibrillation. PLAN: The patient remains stable. Pending dc home on 6 weeks IV Vancomycin, dw CM and PMD, prescription given, home health to monitor Vanco levels kidney f-n and adjust dose DW patient Problems: AURA SPAIN NP Dec 30, 2016 14:04
[2016-12-30] MEDS ORDERED: VANC1VIA2 IV (14:24)
--- NOTE | 2016-12-30 14:27 | DS ---
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 Patient states that he has been on oral antibiotics and stated that he has felt that the ulcer is getting better, however recent x-rays done at the transformer assembler's office showed possible osteomyelitis and he was sent to the hospital. Patient has no other acute complaints and states that all he takes his Lasix and a full dose aspirin for his A. fib and he does not follow-up with a regular primary care provider as he did not have insurance before. Patient has no complaints at this time. Patient denies chest pain, nausea, vomiting, bowel or bladder dysfunction. PMH: Atrial fibrillation, scoliosis, lower extremity swelling PSH: Left varicose vein surgery Social: Daily wine Meds: 325 mg aspirin, Lasix 20 mg Hospital Course SUBJECTIVE: No events. Alert, no fevers MICROBIOLOGY: Blood cultures remain negative. Wound culture + Staph/ Corynebact grp JK DIAGNOSTICS: MRI of right foot revealed osteomyelitis at the first and second distal phalanges. ANTIMICROBIALS: The patient is on IV vancomycin PHYSICAL EXAMINATION: GENERAL: Well-developed elderly man who is alert, in no distress. HEENT: Head atraumatic, normocephalic. Sclerae anicteric. Buccal mucosa pink. NECK: Supple. CHEST: Rise symmetrical. Breath sounds clear. HEART: S1, S2. ABDOMEN: Soft, bowel tones present. EXTREMITIES: With right second toe and great toe swelling and erythema. ASSESSMENT: 1. Right great and second toe osteomyelitis. 2. Right foot second toe cellulitis with an evidence of osteomyelitis. 3. History of atrial fibrillation. PLAN: The patient remains stable. Pending dc home on 6 weeks IV Vancomycin, dw CM and PMD, prescription given, home health to monitor Vanco levels kidney f-n and adjust dose DW patient COURSE: Patient underwent MRI of his foot showing osteomyelitis of 1st and 2nd distal phalanges. Podiatry offered amputation, however patient declined. Infectious disease service was consulted who recommended 6 weeks of IV vancomycin. A PICC line was placed and the patient was sent home with visiting nurse service to continue this medication. He was found to be in permament A Fib, and offered anticoagulation, however declined interest in this. Home Meds Reported Medications Aspirin/Calcium Carbonate/Mag (Aspirin Buffered) 325 Mg Tablet, 325 MG PO DAILY , TAB 04/15/14 Metoprolol Tartrate* (Lopressor*) 50 Mg Tab, 50 MG PO BID, TAB 04/15/14 Primary Care Provider Keshia Otero Pending Labs Laboratory Tests Test 12/29/16 20:40 Vancomycin Level Trough 13.2ug/ml (10.0-20.0) JOEL GUZMAN MD Dec 30, 2016 14:27
== END 2016-12-30 18:45 | disposition home or self-care (01) | DRG 541 ==
LOC: E/R 14:31 → MS4 17:03
PROVIDERS: ADMIT Internal Medicine; ATTEND Internal Medicine
PROC: 02HV33Z Insertion of Infusion Device into Superior Vena Cava, Percutaneous Approach (ICD-10-PCS; principal; 2016-12-29)
DX: M86.9 Osteomyelitis, unspecified (principal); I48.2 Chronic atrial fibrillation; L03.031 Cellulitis of right toe; I87.8 Other specified disorders of veins; L97.519 Non-pressure chronic ulcer of other part of right foot with unspecified severity; M20.41 Other hammer toe(s) (acquired), right foot; R60.9 Edema, unspecified
CPT/HCPCS: 36415; 36569; 71010; 73630; 73718; 76937; 80048; 80053; 80061; 80069; 80202; 83690; 83735; 84100; 84443; 85025; 85610; 85651; 87040; 87070; 93005; 93306; 93922; 93970; 96374; 96375; 97161; 97166; J0696; J1650; J2543; J3370; J3475; J7040; J7050